=== PATIENT | female | born 1970 | race Hispanic/Latino ===

== ENCOUNTER 2016-11-22 18:42 | Inpatient (IN) | payer OTHER ==
--- NOTE | 2016-11-22 19:53 | Emergency Department Report ---
Chief Complaint: Fever Stated Complaint: VOMITING/FEET AND LEG SWELLING/FEVER Time Seen by Provider: 11/22/16 19:52 - HPI History of Present Illness: Patient here reports coughing, fever and vomiting times one day. She reports bilateral leg and feet swelling 5 days. She says she took Tylenol at 5:30 to 6 PM due to increased temperature. Her temperature is 102.7 upon arrival to ER. Check, temp is 99.7 . Patient heart rate is elevated at 131. She reports generalized pain at 10 out of 10. Feels achy . Reports shortness of breath and some chest tightness. Patient has a history of HIV and she goes to [facility] in [facility]. She said her last T- cell was 569. She history of high blood pressure, high cholesterol. History of endometrial ablation. - ROS Review of Systems: All systems are negative unless stated in HPI above. - Exam Vital Signs: Vital Signs 11/22/16 11/22/16 19:20 19:37 Temperature 102.7 F H 99.7 F H Pulse Rate 138 H 131 H Respiratory 20 18 Rate Blood Pressure 119/74 Blood Pressure 122/76 [Left] O2 Sat by Pulse 91 95 Oximetry Physical Exam: GEN This is an obese female that is nontoxic in appearance. CV: Tachycardic at 131. S1-S2. No audible murmur lungs: Clear in the rhonchi to lung herrmann .Mild Increased work of breathing MSE screening note: Focused history and physical exam performed. Due to findings the following was ordered:see mdm ED Medical Decision Making - Medical Decision Making Medical decision making: Patient seen by provider in triage area. Appropriate protocol activated and patient to main ED to be seen by physician. ED Disposition for MSE Condition: Stable
[2016-11-22] MEDS ORDERED: ATROVENT IH ONE ×2 (19:59→21:52)
[2016-11-22] MEDS ORDERED: DUONEB 0.5 MG-3 MG/3 ML SOLN IH ONE ×2 (19:59→20:22)
[2016-11-22] MEDS ORDERED: PROVENTIL IH ONE ×2 (20:13→21:52)
[2016-11-22 20:58] LABS: Basophils % (Auto) 0.1 % (0.0-1.8); Eosinophils % (Auto) 3.8 % (0.0-4.3); Hematocrit 32.4 % (30.3-42.9); Hemoglobin 10.8 gm/dl (10.1-14.3); Mean Corpuscular HGB Conc 33 % (30-34); Mean Corpuscular Hemoglobin 33 pg (28-32); Mean Corpuscular Volume 98 fl (79-97); Platelet Count 212 K/mm3 (140-440); Red Cell Distribution Width 13.9 % (13.2-15.2); White Blood Count 7.8 K/mm3 (4.5-11.0)
[2016-11-22 21:09] LABS: INR 1.08 (0.87-1.13)
[2016-11-22 21:19] LABS: Alanine Aminotransferase 32 units/L (7-56); Albumin 3.1 g/dL (3.9-5); Albumin/Globulin Ratio 1.4 %; Alkaline Phosphatase 87 units/L (35-129); Anion Gap 16 mmol/L; Bilirubin,Total 0.2 mg/dL (0.1-1.2); Blood Urea Nitrogen 5 mg/dL (7-17); Calcium 8.5 mg/dL (8.4-10.2); Carbon Dioxide 27 mmol/L (22-30); Chloride 98.3 mmol/L (98-107); Glucose 103 mg/dL (65-100); Potassium 3.8 mmol/L (3.6-5.0); Sodium 137 mmol/L (137-145); Total Protein 5.3 g/dL (6.3-8.2)
[2016-11-22] MEDS ORDERED: LASIX IV ONE (21:51)
[2016-11-22] MEDS ORDERED: TORADOL IV ONE (21:51)
[2016-11-22] MEDS ORDERED: TYLENOL PO ONE (21:51)
--- NOTE | 2016-11-22 21:53 | Emergency Department Report ---
ED General Adult HPI - General Chief complaint: Fever Stated complaint: VOMITING/FEET AND LEG SWELLING/FEVER Time Seen by Provider: 11/22/16 19:52 Source: patient, RN notes reviewed Mode of arrival: Ambulatory Limitations: Physical Limitation - History of Present Illness Initial comments: Primary care Dr.: Dr. Mark. HIV specialist: [facility] Past medical history: Adrenal insufficiency, has not been taking hydrocortisone for the past month. Also includes hypertension, high cholesterol, HIV, on highly active anti-retroviral therapy. Reports an undetectable viral load, and a CD4 count of 569. This is a 46-year-old female, previously unknown to me. She presents to the ER with increased work intake, fevers, chills, body aches, unintentional 70 pound weight gain, shortness of breath, orthopnea, cough, nausea and general weakness/ fatigue. The lower extremity swelling has been present for the past month. Fatigue and weight gain have been happening over the past month. No recent antibiotic use. No recent sick contacts. No recent travel. Symptoms are constant, the increased with physical exertion and decreased with rest. The patient reports that prior to the onset of the symptoms, she did not have any issues with exercise tolerance. Her significant other endorses that the patient is drinking a lot of water in a single day. -: Gradual, week(s) Location: back, left, right, lower extremity Severity scale (0 -10): 10 Quality: aching Consistency: constant Improves with: rest Worsens with: movement Associated Symptoms: diaphoresis, fever/chills, loss of appetite, malaise, shortness of breath, weakness - Related Data Home Medications Medication Instructions Recorded Confirmed Last Taken Folic Acid 1 mg PO QDAY 01/26/15 11/23/16 01/19/15 Gabapentin [Neurontin] 600 mg PO TID 01/26/15 11/23/16 01/19/15 Loratadine [Claritin] 10 mg PO DAILY 03/04/15 11/23/16 Unknown Montelukast [Singulair] 10 mg PO QPM 03/04/15 11/23/16 Unknown Ranitidine HCl [Zantac 15mg/ml 300 mg PO BID 01/06/16 11/23/16 Unknown Oral Liq] Abacavir/Dolutegravir/Lamivudi 1 each PO DAILY 05/03/16 11/23/16 Unknown [Triumeq Tablet] Atorvastatin Calcium [Lipitor] 20 mg PO DAILY 05/03/16 11/23/16 Unknown DULoxetine [Cymbalta] 30 mg PO BID 05/03/16 11/23/16 Unknown Abacavir/Dolutegravir/Lamivudi 1 tab PO DAILY 06/09/16 11/23/16 Unknown [Triumeq Tablet] Mirtazapine 15 mg PO DAILY 06/09/16 11/23/16 Unknown Multivitamin No.44/Vit D3/K 1 tab PO DAILY 06/09/16 11/23/16 Unknown [Multivitamins Softgels] Percocet 7.5/325 mg 1 tab PO QID 06/09/16 11/23/16 Unknown Morphine ER 15 mg PO BID 11/23/16 11/23/16 1 Day Ago 15mg Previous Rx's Medication Instructions Recorded Last Taken Type Naproxen [Naprosyn] 500 mg PO BID #20 tablet 11/17/15 Unknown Rx Potassium Chloride [Klor-Con 10] 10 meq PO DAILY #7 tablet.er 11/17/15 Unknown Rx Ibuprofen [Motrin 800 MG tab] 800 mg PO Q8HR PRN #20 tablet 06/10/16 Unknown Rx Promethazine [Phenergan TAB] 25 mg PO Q6HR PRN #10 tab 06/10/16 Unknown Rx Promethazine [Phenergan] 25 mg CA Q6HR PRN #10 supp.rect 06/10/16 Unknown Rx traMADol [Ultram] 50 mg PO Q6HR PRN #14 tablet 06/10/16 Unknown Rx Allergies Allergy/AdvReac Type Severity Reaction Status Date / Time ciprofloxacin [From Cipro] Allergy Swelling Verified 06/09/16 12:10 ciprofloxacin HCl Allergy Swelling Verified 06/09/16 12:10 [From Cipro] citalopram hydrobromide Allergy Swelling Verified 06/09/16 12:10 [From Celexa] "plastic tape" Allergy Rash Uncoded 06/09/16 12:10 ED Review of Systems ROS: Stated complaint: VOMITING/FEET AND LEG SWELLING/FEVER Other details as noted in HPI Constitutional: fever, malaise, weakness Respiratory: shortness of breath Cardiovascular: dyspnea on exertion Gastrointestinal: nausea Genitourinary: as per HPI Musculoskeletal: back pain, arthralgia, myalgia Skin: denies: lesions Neurological: weakness Psychiatric: anxiety ED Past Medical Hx - Past Medical History Hx GERD: Yes Hx Asthma: Yes Hx HIV: Yes (last CD4 1074, february 2016) Additional medical history: Storey's disease. High cholesterol. C-diff - Surgical History Hx Cholecystectomy: Yes Additional Surgical History: Endometrial ablation. x 2. Ovarian cyst. Left knee - Social History Smoking Status: Never Smoker Substance Use Type: Alcohol (rarely) - Medications Home Medications: Home Medications Medication Instructions Recorded Confirmed Last Taken Type Folic Acid 1 mg PO QDAY 01/26/15 11/23/16 01/19/15 History Gabapentin [Neurontin] 600 mg PO TID 01/26/15 11/23/16 01/19/15 History Loratadine [Claritin] 10 mg PO DAILY 03/04/15 11/23/16 Unknown History Montelukast [Singulair] 10 mg PO QPM 03/04/15 11/23/16 Unknown History Naproxen [Naprosyn] 500 mg PO BID #20 tablet 11/17/15 11/23/16 Unknown Rx Potassium Chloride [Klor-Con 10] 10 meq PO DAILY #7 tablet.er 11/17/15 11/23/16 Unknown Rx Ranitidine HCl [Zantac 15mg/ml 300 mg PO BID 01/06/16 11/23/16 Unknown History Oral Liq] Abacavir/Dolutegravir/Lamivudi 1 each PO DAILY 05/03/16 11/23/16 Unknown History [Triumeq Tablet] Atorvastatin Calcium [Lipitor] 20 mg PO DAILY 05/03/16 11/23/16 Unknown History DULoxetine [Cymbalta] 30 mg PO BID 05/03/16 11/23/16 Unknown History Abacavir/Dolutegravir/Lamivudi 1 tab PO DAILY 06/09/16 11/23/16 Unknown History [Triumeq Tablet] Mirtazapine 15 mg PO DAILY 06/09/16 11/23/16 Unknown History Multivitamin No.44/Vit D3/K 1 tab PO DAILY 06/09/16 11/23/16 Unknown History [Multivitamins Softgels] Percocet 7.5/325 mg 1 tab PO QID 08/05/16 01/19/17 Unknown History Ibuprofen [Motrin 800 MG tab] 800 mg PO Q8HR PRN #20 tablet 06/10/16 11/23/16 Unknown Rx Promethazine [Phenergan TAB] 25 mg PO Q6HR PRN #10 tab 06/10/16 11/23/16 Unknown Rx Promethazine [Phenergan] 25 mg CA Q6HR PRN #10 supp.rect 06/10/16 11/23/16 Unknown Rx traMADol [Ultram] 50 mg PO Q6HR PRN #14 tablet 06/10/16 11/23/16 Unknown Rx Morphine ER 15 mg PO BID 11/23/16 11/23/16 1 Day Ago History 15mg ED Physical Exam - General Limitations: Physical Limitation General appearance: alert, in distress, obese - Head Head exam: Present: atraumatic, normocephalic - Eye Eye exam: Present: normal appearance, EOMI. Absent: nystagmus - ENT ENT exam: Present: normal exam, normal orophraynx, mucous membranes moist, normal external ear exam - Neck Neck exam: Present: normal inspection, full ROM. Absent: tenderness, meningismus - Respiratory Respiratory exam: Present: wheezes, rales, rhonchi. Absent: respiratory distress - Cardiovascular Cardiovascular Exam: Present: normal rhythm, tachycardia, normal heart sounds. Absent: systolic murmur, diastolic murmur, rubs, gallop - GI/Abdominal GI/Abdominal exam: Present: soft, normal bowel sounds. Absent: distended, tenderness, guarding, rebound, rigid, pulsatile mass - Extremities Exam Extremities exam: Present: full ROM, normal capillary refill, pedal edema, other (there is 3+ pitting edema in the bilateral lower extremities). Absent: joint swelling, calf tenderness - Back Exam Back exam: Present: normal inspection, full ROM, paraspinal tenderness. Absent : tenderness, CVA tenderness (R), CVA tenderness (L), muscle spasm - Neurological Exam Neurological exam: Present: alert, oriented X3, other (Extraocular movements intact. Tongue midline. No facial droop. Facial sensation intact to light touch in the V1, V2, V3 distribution bilaterally. 5 and 5 strength in 4 extremities.. Sensation is intact to light touch in 4 extremities.). Absent: motor sensory deficit - Psychiatric Psychiatric exam: Present: normal affect, normal mood - Skin Skin exam: Present: warm, dry, intact, normal color. Absent: rash ED Course Vital Signs 11/22/16 11/22/16 11/22/16 19:20 19:37 20:24 Temperature 102.7 F H 99.7 F H Pulse Rate 138 H 131 H Pulse Rate [ 127 H Throughout] Respiratory 20 18 Rate Respiratory 16 Rate [ Throughout] Blood Pressure 119/74 Blood Pressure 122/76 [Left] O2 Sat by Pulse 91 95 Oximetry 11/22/16 11/22/16 11/22/16 20:47 21:31 21:48 Temperature Pulse Rate 129 H Pulse Rate [ 132 H Throughout] Respiratory 22 Rate Respiratory 16 Rate [ Throughout] Blood Pressure 103/57 Blood Pressure 103/57 [Left] O2 Sat by Pulse 92 94 Oximetry 11/22/16 11/22/16 11/22/16 21:49 21:51 21:59 Temperature 102.2 F H Pulse Rate 129 H 118 H Pulse Rate [ Throughout] Respiratory 20 Rate Respiratory Rate [ Throughout] Blood Pressure 111/67 Blood Pressure [Left] O2 Sat by Pulse 100 Oximetry 11/22/16 11/22/16 11/22/16 22:00 22:29 23:00 Temperature Pulse Rate 127 H 126 H Pulse Rate [ 124 H Throughout] Respiratory 24 23 Rate Respiratory 22 Rate [ Throughout] Blood Pressure 114/63 124/73 Blood Pressure [Left] O2 Sat by Pulse 94 98 Oximetry 11/22/16 11/23/16 11/23/16 23:30 00:01 00:15 Temperature Pulse Rate 125 H 124 H Pulse Rate [ 133 H Throughout] Respiratory 10 L 21 Rate Respiratory 21 Rate [ Throughout] Blood Pressure 107/69 102/78 Blood Pressure [Left] O2 Sat by Pulse 100 98 Oximetry 11/23/16 11/23/16 11/23/16 01:00 01:10 02:45 Temperature Pulse Rate Pulse Rate [ Throughout] Respiratory 23 Rate Respiratory Rate [ Throughout] Blood Pressure 97/55 83/57 Blood Pressure [Left] O2 Sat by Pulse 98 100 97 Oximetry 11/23/16 11/23/16 11/23/16 03:00 03:20 03:35 Temperature 99.6 F Pulse Rate 117 H 111 H 109 H Pulse Rate [ Throughout] Respiratory 14 14 14 Rate Respiratory Rate [ Throughout] Blood Pressure 83/49 83/49 87/49 Blood Pressure [Left] O2 Sat by Pulse 97 89 86 Oximetry 11/23/16 11/23/16 11/23/16 04:00 04:30 05:00 Temperature Pulse Rate 102 H 103 H 101 H Pulse Rate [ Throughout] Respiratory 19 17 17 Rate Respiratory Rate [ Throughout] Blood Pressure 91/48 79/48 104/70 Blood Pressure [Left] O2 Sat by Pulse 100 97 100 Oximetry 11/23/16 11/23/16 11/23/16 05:30 06:00 06:03 Temperature Pulse Rate Pulse Rate [ Throughout] Respiratory Rate Respiratory Rate [ Throughout] Blood Pressure 94/57 88/58 88/58 Blood Pressure [Left] O2 Sat by Pulse 99 95 96 Oximetry 11/23/16 11/23/16 11/23/16 06:30 07:00 07:30 Temperature Pulse Rate 100 H 103 H 105 H Pulse Rate [ Throughout] Respiratory 21 14 13 Rate Respiratory Rate [ Throughout] Blood Pressure 94/55 102/63 83/44 Blood Pressure [Left] O2 Sat by Pulse 98 100 94 Oximetry 11/23/16 11/23/16 11/23/16 07:33 07:40 08:00 Temperature 98.7 F Pulse Rate 105 H 103 H Pulse Rate [ Throughout] Respiratory 14 13 Rate Respiratory Rate [ Throughout] Blood Pressure 83/44 84/44 Blood Pressure [Left] O2 Sat by Pulse 95 94 Oximetry 11/23/16 11/23/16 11/23/16 08:30 09:00 09:21 Temperature Pulse Rate 102 H 98 H 99 H Pulse Rate [ Throughout] Respiratory 24 12 12 Rate Respiratory Rate [ Throughout] Blood Pressure 93/63 85/58 83/56 Blood Pressure [Left] O2 Sat by Pulse 96 95 94 Oximetry 11/23/16 11/23/16 11/23/16 09:31 10:00 10:02 Temperature Pulse Rate 98 H 96 H Pulse Rate [ Throughout] Respiratory 18 20 16 Rate Respiratory Rate [ Throughout] Blood Pressure 83/56 Blood Pressure 103/64 [Left] O2 Sat by Pulse 96 96 95 Oximetry - Reevaluation(s) Reevaluation #1: 11/22/16 21:58 Differential diagnosis: Congestive heart failure, cardiomyopathy (ischemic versus infectious versus other), pneumonia, influenza, viremia, bacteremia, right-sided heart failure, pulmonary hypertension Assessment and plan: 46-year-old female with fever, tachycardia, edema, respiratory distress, hypoxia (saturating in the high 80s on room air.) Has a fever. Chest x-ray suggests congestive heart failure with possible pneumonia. The patient has a known history of adrenal insufficiency, and has not been taking her hydrocortisone for the past month. We will start her on BiPAP therapy. We will load her empirically with 100 mg of hydrocortisone IV. She is volume overloaded, and she will be given Lasix. Blood cultures, urine cultures, influenza swab to be sent. She will be given ceftriaxone. Case is discussed with the Hospital physician, Dr. Guo, who accepts the patient to her service. Reevaluation #2: 11/23/16 06:49 CT scan of the chest negative for pulmonary embolus. Patient had some episodes of hypotension. Given hypotension, fever, concern for adrenal suppression, the patient was bolused with 2 L of IV fluid, and hypotension improved. ED Medical Decision Making - Lab Data Result diagrams: 11/22/16 20:43 11/22/16 20:43 Vital Signs 11/22/16 11/22/16 11/22/16 19:20 19:37 20:24 Temperature 102.7 F H 99.7 F H Pulse Rate 138 H 131 H Pulse Rate [ 127 H Throughout] Respiratory 20 18 Rate Respiratory 16 Rate [ Throughout] Blood Pressure 119/74 Blood Pressure 122/76 [Left] O2 Sat by Pulse 91 95 Oximetry 11/22/16 11/22/16 11/22/16 20:47 21:48 21:49 Temperature Pulse Rate 129 H 129 H Pulse Rate [ 132 H Throughout] Respiratory 22 Rate Respiratory 16 Rate [ Throughout] Blood Pressure Blood Pressure 103/57 [Left] O2 Sat by Pulse 94 Oximetry 11/22/16 21:59 Temperature 102.2 F H Pulse Rate Pulse Rate [ Throughout] Respiratory Rate Respiratory Rate [ Throughout] Blood Pressure Blood Pressure [Left] O2 Sat by Pulse Oximetry Lab Results 11/22/16 11/22/16 11/22/16 Range/Units 20:43 20:43 20:43 WBC 7.8 (4.5-11.0) K/mm3 RBC 3.30 L (3.65-5.03) M/mm3 Hgb 10.8 (10.1-14.3) gm/dl Hct 32.4 (30.3-42.9) % MCV 98 H (79-97) fl MCH 33 H (28-32) pg MCHC 33 (30-34) % RDW 13.9 (13.2-15.2) % Plt Count 212 (140-440) K/mm3 Lymph % (Auto) 21.8 (13.4-35.0) % Graham % (Auto) 13.0 H (0.0-7.3) % Eos % (Auto) 3.8 (0.0-4.3) % Baso % (Auto) 0.1 (0.0-1.8) % Lymph # 1.7 (1.2-5.4) K/mm3 Graham # 1.0 H (0.0-0.8) K/mm3 Eos # 0.3 (0.0-0.4) K/mm3 Baso # 0.0 (0.0-0.1) K/mm3 Seg Neutrophils % 61.3 (40.0-70.0) % Seg Neutrophils # 4.8 (1.8-7.7) K/mm3 PT 13.9 (12.2-14.9) Sec. INR 1.08 (0.87-1.13) Sodium 137 (137-145) mmol/L Potassium 3.8 (3.6-5.0) mmol/L Chloride 98.3 (98-107) mmol/L Carbon Dioxide 27 (22-30) mmol/L Anion Gap 16 mmol/L BUN 5 L (7-17) mg/dL Creatinine 1.0 (0.7-1.2) mg/dL Estimated GFR 60 ml/min BUN/Creatinine Ratio 5.00 % Glucose 103 H (65-100) mg/dL Lactic Acid (0.7-2.0) mmol/L Calcium 8.5 (8.4-10.2) mg/dL Total Bilirubin 0.2 (0.1-1.2) mg/dL AST 41 H (5-40) units/L ALT 32 (7-56) units/L Alkaline Phosphatase 87 (35-129) units/L Troponin T < 0.010 (0.00-0.029) ng/mL NT-Pro-B Natriuret Pep (0-450) pg/mL Total Protein 5.3 L (6.3-8.2) g/dL Albumin 3.1 L (3.9-5) g/dL Albumin/Globulin Ratio 1.4 % 11/22/16 11/22/16 Range/Units 20:43 20:43 WBC (4.5-11.0) K/mm3 RBC (3.65-5.03) M/mm3 Hgb (10.1-14.3) gm/dl Hct (30.3-42.9) % MCV (79-97) fl MCH (28-32) pg MCHC (30-34) % RDW (13.2-15.2) % Plt Count (140-440) K/mm3 Lymph % (Auto) (13.4-35.0) % Graham % (Auto) (0.0-7.3) % Eos % (Auto) (0.0-4.3) % Baso % (Auto) (0.0-1.8) % Lymph # (1.2-5.4) K/mm3 Graham # (0.0-0.8) K/mm3 Eos # (0.0-0.4) K/mm3 Baso # (0.0-0.1) K/mm3 Seg Neutrophils % (40.0-70.0) % Seg Neutrophils # (1.8-7.7) K/mm3 PT (12.2-14.9) Sec. INR (0.87-1.13) Sodium (137-145) mmol/L Potassium (3.6-5.0) mmol/L Chloride (98-107) mmol/L Carbon Dioxide (22-30) mmol/L Anion Gap mmol/L BUN (7-17) mg/dL Creatinine (0.7-1.2) mg/dL Estimated GFR ml/min BUN/Creatinine Ratio % Glucose (65-100) mg/dL Lactic Acid 1.7 (0.7-2.0) mmol/L Calcium (8.4-10.2) mg/dL Total Bilirubin (0.1-1.2) mg/dL AST (5-40) units/L ALT (7-56) units/L Alkaline Phosphatase (35-129) units/L Troponin T (0.00-0.029) ng/mL NT-Pro-B Natriuret Pep 351.7 (0-450) pg/mL Total Protein (6.3-8.2) g/dL Albumin (3.9-5) g/dL Albumin/Globulin Ratio % - EKG Data 11/22/16 22:00 sinus tachycardia, low voltage, QTC prolonged at 581 ms, abnormal EKG, not consistent with STEMI, appears unchanged when compared to prior EKG from June 2016. Critical Care Time: Yes Critical care time in (mins) excluding proc time.: 35 Critical care attestation.: If time is entered above; I have spent that time in minutes in the direct care of this critically ill patient, excluding procedure time. Critical Care Time: Critical care time includes multiple bedside evaluations, interpretation of laboratory studies, radiology studies, time spent managing a patient with respiratory failure requiring initiation of BiPAP therapy, antibiotics, diuretics, and discussing with consulting services, including hospital medicine. This excludes procedure time. ED Disposition Clinical Impression: Respiratory failure, Volume overload, Acute febrile illness Disposition: OP ADMITTED IP TO THIS HOSP Is pt being admited?: Yes Condition: Good
--- NOTE | 2016-11-22 21:59 | XRay Report ---
FINAL REPORT EXAM: XR CHEST ROUTINE 2V HISTORY: Fever/Sepsis TECHNIQUE: PA and lateral views of the chest PRIORS: CT a/P 06/09/2016 FINDINGS: Lines, tubes, and devices: N/A Lungs and pleura: Trachea is normal in position. Lungs are clear of infiltrate, pleural effusion, vascular congestion, or pneumothorax. Cardiomediastinal silhouette: Cardiac silhouette is enlarged. However, on the right cardiac border, there is lucency within the silhouette suggesting a prominent epicardial fat pad the likely etiology. This is confirmed on prior CT. Other: Bony structures are intact. IMPRESSION: Enlarged cardiac silhouette due to a large epicardial fat pad on the right. No acute cardiopulmonary process seen.
[2016-11-22] MEDS ORDERED: ROCEPHIN/NS 2 GM/100 ML 100 ML IV ONE (22:00)
[2016-11-22 22:14] LABS: Bacteria,Urine 1+ /HPF (Negative); Bilirubin,Urine NEG (Negative); Blood,Urine NEG (Negative); Ketones,Urine NEG (Negative); Leukocyte Esterase,Urine NEG (Negative); Mucus,Urine FEW /HPF; Nitrite,Urine NEG (Negative); Protein,Urine <15 mg/dL mg/dL (Negative); RBC,Urine < 1.0 /HPF (0.0-6.0); Urobilinogen,Urine < 2.0 mg/dL (<2.0); WBC,Urine < 1.0 /HPF (0.0-6.0)
[2016-11-22 22:28] LABS: ISTAT Base Excess 1; ISTAT HCO3 25.8; ISTAT PCO2 44.3 (35-45); ISTAT PH 7.373 (7.35-7.45); ISTAT PO2 66 (80-105); ISTAT SO2 92; ISTAT TCO2 27
[2016-11-22] MEDS ORDERED: NACL ONE (23:01)
--- NOTE | 2016-11-22 23:13 | Admit Criteria Form ---
Admission Criteria Documentation: RESPIRATORY FAILURE GRG Clinical Indications for Admission to Inpatient Care (Place 'X' for any and all applicable criteria): Hospital admission is needed for appropriate care of the patient because of acute respiratory failure or insufficiency as indicated by ANY ONE of the following(1)(2)(3)(4)(5)(6)(7)(8): [X ]I. Mechanical ventilation needed (acute invasive or noninvasive) [ ]II. Severe ventilation deficit as indicated by ANY ONE of the following (9) [ ]a) Respiratory acidosis (pH less than 7.32 and partial pressure of carbon dioxide greater than 40 mm Hg (5.3 kPa)) [ ]b) Partial pressure of carbon dioxide greater than 44 mm Hg (5.9 kPa ) (new) [ ]c) Airflow measurements less than 25% of predicted (eg, peak expiratory flow rate less than 100 L/minute) [ ]d) Forced vital capacity less than 15 mL/kg of ideal body weight, or 50% decrease in vital capacity from baseline [ ]III. Noncardiac pulmonary edema not resolving with rapid emergency treatment (8) [ ]IV. Severe respiratory distress as indicated by ANY ONE of the following: [ ]a) Severe tachypnea (respiratory rate greater than 30, greater than 45 for 6-month-old, greater than 60 for ) [ ]b) Severe hypoxemia (partial pressure of oxygen less than 50 mm Hg ( 6.7 kPa) on greater than 50% oxygen or partial pressure of oxygen to FIO2 ratio less than 200) [ ]c) Mental status deterioration from respiratory disease [ ]V. Airway obstruction or inadequate protection [A](10)(11) The original [employer] content created by [employer] has been revised. The portions of the content which have been revised are identified through the use of italic text or in bold, and [employer] has neither reviewed nor approved the modified material. All other unmodified content is copyright [employer]. Please see references footnoted in the original [employer] edition 2016 Admission Criteria Met: Yes
--- NOTE | 2016-11-23 03:06 | Cat Scan Report ---
FINAL REPORT PROCEDURE: CT ANGIO CHEST TECHNIQUE: Computerized axial tomographic angiography of the chest and pulmonary arteries was performed after the IV injection of iodinated nonionic contrast. The image data was postprocessed using maximum intensity projection (MIP) and 2-dimensional multiplanar reformatted (MPR) techniques. The examination is specifically tailored to the evaluation of the pulmonary arteries per clinical request. HISTORY: Short of breath 786.09, chest pain 786.50, chf vs PE vs PNA SOB COMPARISON: No prior studies are available for comparison. FINDINGS: Heart and pericardium: There is prominent pericardial fat. There is herniation of abdominal fat into the anterior pericardial region.. Thoracic aorta: There is no thoracic aortic aneurysm or dissection.. Pulmonary vasculature: There is no pulmonary embolism.. Lymph nodes: There are borderline enlarged mediastinal lymph nodes which are nonspecific.. Lungs: There is suboptimal inspiration with bilateral discoid atelectasis. There are no infiltrates. There is significant narrowing of the trachea and bronchi consistent tracheomalacia. There is no intrinsic filling defect.. Pleural space: There are no effusions or pneumothoraces.. Musculoskeletal structures: No significant abnormality. Upper abdominal structures: There has been a cholecystectomy. The bile ducts are slightly dilated.. IMPRESSION: Heart size is normal. There is prominent pericardial fat. There is herniation of abdominal fat into the anterior pericardial region.. There is no thoracic aortic aneurysm or dissection.. There is no pulmonary embolism.. There is suboptimal inspiration with bilateral discoid atelectasis. There are no infiltrates. There is significant narrowing of the trachea and bronchi consistent tracheomalacia. There is no intrinsic filling defect.. There are no effusions or pneumothoraces.. There has been a cholecystectomy. The bile ducts are slightly dilated.. .
[2016-11-23] MEDS ORDERED: NACL 0.9% 1000 ML 2,000 ML ONE (03:38)
[2016-11-23] MEDS ORDERED: NACL 0.9% 1000 ML 2,000 ML IV ONE (03:50)
--- NOTE | 2016-11-23 06:13 | History and Physical Report ---
History of Present Illness Date of examination: 11/23/16 Date of admission: 11/23/16 03:41 History of present illness: 46 year old woman with history of HIV, adrenal insufficiency, GERD, asthma, hypertension, hyperlipidemia comes to the emergency room with complaints of shortness of breath, cough productive of brown phlegm, fever and generalized weakness. Also complaining of nausea vomiting, unable to do ADLs. His symptoms started yesterday. Patient stated that she has had increasing lower extremity edema over the last 2 weeks. She is on chronic steroids for adrenal numbness insulin over the last month and since then her edema has gotten worse. Patient was placed on BiPAP in the emergency room Patient denies chest pain, palpitation, , abdominal pain, hematochezia, dysuria , frequency, focal weakness, dysarthria, fever chills, polydipsia polyuria, hot or cold intolerance, easy bruisability, or rash or bleeding from mucosal membrane, rhinorrhea, epistaxis, earache, tinnitus, blurry vision, eye discharge , anxiety, depression. Other review of systems negative PAST SURGICAL HISTORY: Left knee surgery, 2, removal of ovarian cyst , endometrial ablation SOCIAL HISTORY: Denies alcohol, tobacco, drugs FAMILY HISTORY: Hypertension Medications and Allergies Allergies Allergy/AdvReac Type Severity Reaction Status Date / Time ciprofloxacin [From Cipro] Allergy Swelling Verified 06/09/16 12:10 ciprofloxacin HCl Allergy Swelling Verified 06/09/16 12:10 [From Cipro] citalopram hydrobromide Allergy Swelling Verified 06/09/16 12:10 [From Celexa] "plastic tape" Allergy Rash Uncoded 06/09/16 12:10 Home Medications Medication Instructions Recorded Confirmed Last Taken Type Folic Acid 1 mg PO QDAY 01/26/15 11/23/16 01/19/15 History Gabapentin [Neurontin] 600 mg PO TID 01/26/15 11/23/16 01/19/15 History Loratadine [Claritin] 10 mg PO DAILY 03/04/15 11/23/16 Unknown History Montelukast [Singulair] 10 mg PO QPM 03/04/15 11/23/16 Unknown History Naproxen [Naprosyn] 500 mg PO BID #20 tablet 11/17/15 11/23/16 Unknown Rx Potassium Chloride [Klor-Con 10] 10 meq PO DAILY #7 tablet.er 11/17/15 11/23/16 Unknown Rx Ranitidine HCl [Zantac 15mg/ml 300 mg PO BID 01/06/16 11/23/16 Unknown History Oral Liq] Abacavir/Dolutegravir/Lamivudi 1 each PO DAILY 05/03/16 11/23/16 Unknown History [Triumeq Tablet] Atorvastatin Calcium [Lipitor] 20 mg PO DAILY 05/03/16 11/23/16 Unknown History DULoxetine [Cymbalta] 30 mg PO BID 05/03/16 11/23/16 Unknown History Abacavir/Dolutegravir/Lamivudi 1 tab PO DAILY 06/09/16 11/23/16 Unknown History [Triumeq Tablet] Mirtazapine 15 mg PO DAILY 06/09/16 11/23/16 Unknown History Multivitamin No.44/Vit D3/K 1 tab PO DAILY 06/09/16 11/23/16 Unknown History [Multivitamins Softgels] Percocet 7.5/325 mg 1 tab PO QID 06/09/16 11/23/16 Unknown History Ibuprofen [Motrin 800 MG tab] 800 mg PO Q8HR PRN #20 tablet 06/10/16 11/23/16 Unknown Rx Promethazine [Phenergan TAB] 25 mg PO Q6HR PRN #10 tab 06/10/16 11/23/16 Unknown Rx Promethazine [Phenergan] 25 mg VA Q6HR PRN #10 supp.rect 06/10/16 11/23/16 Unknown Rx traMADol [Ultram] 50 mg PO Q6HR PRN #14 tablet 06/10/16 11/23/16 Unknown Rx Morphine ER 15 mg PO BID 11/23/16 11/23/16 1 Day Ago History 15mg Exam - Physical Exam Narrative exam: Gen. appearance: Patient lying in bed, no apparent distress HEENT: Normocephalic, atraumatic, pupils equally round and reactive to light, extraocular movement intact, and no sclericterus,. No JVD or thyromegaly or nodule,neck supple, no carotid bruit ,mucous membranes moist, no exudate or erythema Heart: S1, S2, regular rate and rhythm Lungs: Diffuse rhonchi, wheezing bilaterally, breathing comfortable Abdomen: Positive bowel sounds, nontender, nondistended, no organomegaly Extremity: No edema, cyanosis, clubbing Skin: No rash, nodules, warm, dry Neuro: Oriented 3, cranial nerves II-12 intact, speech is fluent, motor and sensory intact - Constitutional Vitals: Temp Pulse Resp BP Pulse Ox 99.6 F 101 H 17 88/58 95 11/23/16 03:35 11/23/16 05:00 11/23/16 05:00 11/23/16 06:00 11/23/16 06:00 Results - Labs CBC & Chem 7: 11/24/16 05:55 11/26/16 18:04 - Imaging and Cardiology Chest x-ray: image reviewed CT scan - chest: report reviewed Assessment and Plan Acute respiratory failure Asthma exacerbation with bronchitis Adrenal insufficiency exacerbation HIV GERD Admit to medicine Continue BiPAP, start high-dose IV hydrocortisone, nebulized treatment Diurese IV Lasix, check cardiac enzymes Continue appropriate outpatient medications, start DVT prophylaxis
[2016-11-23] MEDS: NEURONTIN PO SCH ×3 (08:30→21:44)
[2016-11-23] MEDS ORDERED: PEPCID ONE (08:45)
[2016-11-23] MEDS ORDERED: CYMBALTA ONE (08:46)
[2016-11-23] MEDS ORDERED: REMERON ONE (08:46)
[2016-11-23] MEDS ORDERED: NEURONTIN ONE (08:47)
[2016-11-23] MEDS ORDERED: TYLENOL PO PRN (09:00)
[2016-11-23] MEDS ORDERED: ZOFRAN IV PRN (09:00)
[2016-11-23] MEDS ORDERED: MILK OF MAGNESIA PO PRN (09:00)
[2016-11-23] MEDS ORDERED: NACL 0.9% 1000 ML 1,000 ML ONE (09:39)
[2016-11-23] MEDS ORDERED: PROVENTIL IH PRN (09:39)
[2016-11-23] MEDS ORDERED: NACL 0.9% 1000 ML IV ONE (09:40)
[2016-11-23] MEDS: LASIX IV SCH (09:49)
[2016-11-23] MEDS: CYMBALTA PO SCH ×2 (09:50→21:44)
[2016-11-23] MEDS: REMERON PO SCH (09:50)
[2016-11-23] MEDS: LOVENOX SUB-Q SCH (09:50)
[2016-11-23] MEDS: PEPCID PO SCH ×2 (09:50→21:44)
[2016-11-23] MEDS ORDERED: DULCOLAX PR PRN (10:00)
[2016-11-23 10:06] LABS: Creatine Kinase MB 1.9 ng/mL (0.0-4.0)
[2016-11-23 10:10] LABS: Creatine Kinase 215 units/L (30-135)
[2016-11-23] MEDS: FOLVITE PO SCH (12:06)
[2016-11-23] MEDS: DUONEB 0.5 MG-3 MG/3 ML SOLN IH SCH ×3 (13:34→21:10)
[2016-11-23 15:45] LABS: Creatine Kinase MB 2.1 ng/mL (0.0-4.0)
[2016-11-23 15:46] LABS: Creatine Kinase 268 units/L (30-135)
--- NOTE | 2016-11-23 17:47 | Event Note ---
Date: 11/23/16 SOB better More comfortableAcute respiratory failure Asthma exacerbation with bronchitis Adrenal insufficiency exacerbation HIV GERD Continue BiPAP, start high-dose IV hydrocortisone, nebulized treatment Diurese IV Lasix, check cardiac enzymes Continue appropriate outpatient medications, start DVT prophylaxis
[2016-11-24] MEDS ORDERED: ULTRAM PO PRN (00:47)
[2016-11-24] MEDS ORDERED: PHENERGAN PO PRN (00:49)
[2016-11-24] MEDS: DUONEB 0.5 MG-3 MG/3 ML SOLN IH SCH ×4 (01:23→21:06)
[2016-11-24] MEDS: PERCOCET 5/325 PO PRN (05:44)
[2016-11-24 06:35] LABS: Basophils % (Auto) 0.1 % (0.0-1.8); Hematocrit 29.9 % (30.3-42.9); Hemoglobin 9.9 gm/dl (10.1-14.3); Mean Corpuscular HGB Conc 33 % (30-34); Mean Corpuscular Hemoglobin 33 pg (28-32); Mean Corpuscular Volume 99 fl (79-97); Platelet Count 175 K/mm3 (140-440); Red Blood Count 3.03 M/mm3 (3.65-5.03); Red Cell Distribution Width 14.2 % (13.2-15.2); White Blood Count 4.1 K/mm3 (4.5-11.0)
[2016-11-24 06:46] LABS: Alanine Aminotransferase 24 units/L (7-56); Albumin 2.5 g/dL (3.9-5); Albumin/Globulin Ratio 0.9 %; Alkaline Phosphatase 68 units/L (35-129); BUN/Creatinine Ratio 11.42; Bilirubin,Total < 0.2 mg/dL (0.1-1.2); Blood Urea Nitrogen 8 mg/dL (7-17); Calcium 7.9 mg/dL (8.4-10.2); Carbon Dioxide 26 mmol/L (22-30); Chloride 104.1 mmol/L (98-107); Glucose 147 mg/dL (65-100); Potassium 3.8 mmol/L (3.6-5.0); Sodium 143 mmol/L (137-145); Total Protein 5.3 g/dL (6.3-8.2)
[2016-11-24 06:47] LABS: Anion Gap 17 mmol/L
[2016-11-24] MEDS ORDERED: PROTONIX PO ONE (09:38)
--- NOTE | 2016-11-24 09:46 | Progress Note ---
Assessment and Plan Assessment and plan: 46 year old woman with history of HIV, adrenal insufficiency, GERD, asthma, htn , hld, pw SOB and fever, productive cough, -here for asthma exacerbation, adrenal insufficiency and SIRS 1. Asthma exacerbation Add azithromycin, taper steroids, continue nebulizer treatment, continue to wean oxygen 2. Acute hypoxic respiratory failure Patient required rescue BiPAP, now on supplemental oxygen and doing well 3. Fluid overload has probable CHF?, increase IV lasix to TID, obtain echocardiogram 4. Adrenal insufficiency Continue steroids as above, tapering dose 5. Sirs Patient was febrile initially, fever has improved now, infectious workup is so far negative, urine and chest imaging is negative. Will send influenza swab today 6. HIV Continue retrovirals History Interval history: Shortness of breath is improving as his wheezing. Continues to have dyspnea on exertion, c/o pitting edema and 50 pound weight gain over 2 months Hospitalist Physical - Physical exam Narrative exam: General: Patient appears well in no distress HEENT: MMM, EOMI cardiac: S1-S2 heard lungs: Decreased air entry, expiratory wheezing abdomen: soft, nontender, nondistended bowel sounds positive extremities: 3 plus bipedal edema, no clubbing or cyanosis Skin: no rash or lesion Neuro: no focal deficit Psych: appropriate behavior and mood, cognition intact - Constitutional Vitals: Temp Pulse Resp BP Pulse Ox 98.4 F 104 H 16 118/75 96 11/24/16 05:23 11/24/16 08:33 11/24/16 08:33 11/24/16 05:23 11/24/16 05:23 Results - Labs CBC & Chem 7: 11/24/16 05:55 11/24/16 05:55 Labs: Laboratory Last Values WBC 4.1 K/mm3 (4.5-11.0) L 11/24/16 05:55 RBC 3.03 M/mm3 (3.65-5.03) L 11/24/16 05:55 Hgb 9.9 gm/dl (10.1-14.3) L 11/24/16 05:55 Hct 29.9 % (30.3-42.9) L 11/24/16 05:55 MCV 99 fl (79-97) H 11/24/16 05:55 MCH 33 pg (28-32) H 11/24/16 05:55 MCHC 33 % (30-34) 11/24/16 05:55 RDW 14.2 % (13.2-15.2) 11/24/16 05:55 Plt Count 175 K/mm3 (140-440) 11/24/16 05:55 Lymph % (Auto) 19.5 % (13.4-35.0) 11/24/16 05:55 [place] % (Auto) 11.5 % (0.0-7.3) H 11/24/16 05:55 Eos % (Auto) 0.0 % (0.0-4.3) 11/24/16 05:55 Baso % (Auto) 0.1 % (0.0-1.8) 11/24/16 05:55 Lymph # 0.8 K/mm3 (1.2-5.4) L 11/24/16 05:55 [place] # 0.5 K/mm3 (0.0-0.8) 11/24/16 05:55 Eos # 0.0 K/mm3 (0.0-0.4) 11/24/16 05:55 Baso # 0.0 K/mm3 (0.0-0.1) 11/24/16 05:55 Seg Neutrophils % 68.9 % (40.0-70.0) 11/24/16 05:55 Seg Neutrophils # 2.9 K/mm3 (1.8-7.7) 11/24/16 05:55 PT 13.9 Sec. (12.2-14.9) 11/22/16 20:43 INR 1.08 (0.87-1.13) 11/22/16 20:43 POC ABG pH 7.373 (7.35-7.45) 11/22/16 22:18 POC ABG pCO2 44.3 (35-45) 11/22/16 22:18 POC ABG pO2 66 (80-105) L 11/22/16 22:18 POC ABG HCO3 25.8 11/22/16 22:18 POC ABG Total CO2 27 11/22/16 22:18 POC ABG O2 Sat 92 11/22/16 22:18 POC ABG Base Excess 1 11/22/16 22:18 Sodium 143 mmol/L (137-145) 11/24/16 05:55 Potassium 3.8 mmol/L (3.6-5.0) 11/24/16 05:55 Chloride 104.1 mmol/L (98-107) 11/24/16 05:55 Carbon Dioxide 26 mmol/L (22-30) 11/24/16 05:55 Anion Gap 17 mmol/L 11/24/16 05:55 BUN 8 mg/dL (7-17) 11/24/16 05:55 Creatinine 0.7 mg/dL (0.7-1.2) 11/24/16 05:55 Estimated GFR > 60 ml/min 11/24/16 05:55 BUN/Creatinine Ratio 11.42 % 11/24/16 05:55 Glucose 147 mg/dL (65-100) H 11/24/16 05:55 Lactic Acid 2.0 mmol/L (0.7-2.0) 11/22/16 23:22 Calcium 7.9 mg/dL (8.4-10.2) L 11/24/16 05:55 Total Bilirubin < 0.2 mg/dL (0.1-1.2) 11/24/16 05:55 AST 30 units/L (5-40) 11/24/16 05:55 ALT 24 units/L (7-56) 11/24/16 05:55 Alkaline Phosphatase 68 units/L (35-129) 11/24/16 05:55 Total Creatine Kinase 268 units/L (30-135) H 11/23/16 14:55 CK-MB (CK-2) 2.1 ng/mL (0.0-4.0) 11/23/16 14:55 CK-MB (CK-2) Rel Index 0.7 (0-4) 11/23/16 14:55 Troponin T < 0.010 ng/mL (0.00-0.029) 11/23/16 14:55 NT-Pro-B Natriuret Pep 351.7 pg/mL (0-450) 11/22/16 20:43 Total Protein 5.3 g/dL (6.3-8.2) L 11/24/16 05:55 Albumin 2.5 g/dL (3.9-5) L 11/24/16 05:55 Albumin/Globulin Ratio 0.9 % 11/24/16 05:55 Urine Color Yellow (Yellow) 11/22/16 21:59 Urine Turbidity Clear (Clear) 11/22/16 21:59 Urine pH 5.0 (5.0-7.0) 11/22/16 21:59 Ur Specific [place] 1.009 (1.003-1.030) 11/22/16 21:59 Urine Protein <15 mg/dl mg/dL (Negative) 11/22/16 21:59 Urine Glucose (UA) Neg mg/dL (Negative) 11/22/16 21:59 Urine Ketones Neg mg/dL (Negative) 11/22/16 21:59 Urine Blood Neg (Negative) 11/22/16 21:59 Urine Nitrite Neg (Negative) 11/22/16 21:59 Urine Bilirubin Neg (Negative) 11/22/16 21:59 Urine Urobilinogen < 2.0 mg/dL (<2.0) 11/22/16 21:59 Ur Leukocyte Esterase Neg (Negative) 11/22/16 21:59 Urine WBC (Auto) < 1.0 /HPF (0.0-6.0) 11/22/16 21:59 Urine RBC (Auto) < 1.0 /HPF (0.0-6.0) 11/22/16 21:59 U Epithel Cells (Auto) 1.0 /HPF (0-13.0) 11/22/16 21:59 Urine Bacteria (Auto) 1+ /HPF (Negative) 11/22/16 21:59 Urine Mucus Few /HPF 11/22/16 21:59 - Imaging and Cardiology CT scan - chest: image reviewed (there is no pulmonary embolus, no infiltrates, tracheomalacia is seen)
[2016-11-24] MEDS: LOVENOX SUB-Q SCH (10:02)
[2016-11-24] MEDS: CYMBALTA PO SCH ×2 (10:02→22:25)
[2016-11-24] MEDS: NEURONTIN PO SCH ×3 (10:02→22:25)
[2016-11-24] MEDS: FOLVITE PO SCH (10:02)
[2016-11-24] MEDS: REMERON PO SCH (10:02)
[2016-11-24] MEDS: LASIX IV SCH ×3 (10:03→22:33)
[2016-11-24] MEDS: NAPROSYN PO SCH ×2 (10:12→22:24)
[2016-11-24] MEDS: MS CONTIN ER PO SCH ×2 (10:12→22:16)
[2016-11-24] MEDS: PEPCID PO SCH ×2 (10:23→22:17)
[2016-11-24] MEDS: ZITHROMAX PO SCH (12:51)
[2016-11-25] MEDS: DUONEB 0.5 MG-3 MG/3 ML SOLN IH SCH ×4 (02:14→19:22)
[2016-11-25] MEDS: PERCOCET 5/325 PO PRN ×2 (03:34→18:54)
[2016-11-25] MEDS: LASIX IV SCH ×3 (06:25→18:25)
[2016-11-25] MEDS: NEURONTIN PO SCH ×3 (09:06→20:44)
--- NOTE | 2016-11-25 09:39 | Progress Note ---
Assessment and Plan Assessment and plan: 46-year-old obese female with a history of HIV adrenal insufficiency and asthma exacerbation currently hemodynamically stable and improving with steroid- dependent and steroidal taper. Disposition Plan: discharge when acute asthma has been effectively treated. Total Time Spent with Patient (Minutes): 23 - Patient Problems (1) Acute febrile illness Current Visit: Yes Status: Acute Plan to address problem: Acute febrile illness most likely secondary to influenza. Has been greater than 2-3 days Tamiflu will be unaffected continue to treat symptoms. (2) Respiratory failure Current Visit: Yes Status: Acute Qualifiers: Chronicity: acute Respiratory failure complication: hypoxia Qualified Code(s): J96.01 - Acute respiratory failure with hypoxia Plan to address problem: Acute hypoxic respiratory failure secondary to asthma. Influenza virus may have been a trigger. Patient still short of breath and still wheezing but has improved. We'll continue to taper still steroids. Continue nebulizes. (3) Volume overload Current Visit: Yes Status: Acute Plan to address problem: Patient also has evidence of volume overload on exam. Patient has +3 pitting edema. And few crackles on bilateral lower lung [place]. Echocardiogram pending to rule out congestive heart failure in addition to this asthma component. Continue oxygen. If patient is in fact in failure will add SUPRIYA inhibitor, diarrhetic. We'll need to assess risks versus benefits with the addition of a beta kristen in this patient with severe asthma. (4) Abdominal pain Current Visit: No Status: Acute Qualifiers: Abdominal location: generalized Qualified Code(s): R10.84 - Generalized abdominal pain Plan to address problem: Resolved at this particular time. (5) Asthma exacerbation Current Visit: Yes Status: Acute Plan to address problem: Patient would appears to be acute asthma exacerbation. Continue nebulizes empiric antibodies. Albuterol Atrovent and taper sterile. (6) SIRS (systemic inflammatory response syndrome) Current Visit: Yes Status: Acute Plan to address problem: At present most likely secondary to influenza a. Treat symptom management. Improving. White count downtrending fever curve improving strength improving. (7) Influenza A Current Visit: Yes Status: Acute Plan to address problem: See positive blood. Continue supportive care. (8) Adrenal insufficiency Current Visit: Yes Status: Acute Plan to address problem: Significant improvement with sterile at school continue taper as planned. History Interval history: Patient today states she feels tight around her chest. Patient states she's never felt as bad as she does with her breathing. Patient states she usually just does poor air when necessary but now requires much more nebulizer treatment. Patient states she is better than when she came in. As significant patient was diagnosed with positive influenza a today. Hospitalist Physical - Constitutional Vitals: Temp Pulse Resp BP Pulse Ox 98.0 F 99 H 20 116/68 95 11/25/16 08:13 11/25/16 08:13 11/25/16 08:13 11/25/16 08:13 11/25/16 08:13 General appearance: Present: no acute distress - EENT Eyes: Present: PERRL, EOM intact ENT: hearing intact, clear oral mucosa, dentition normal, no oropharyngeal erythema, no poor dentition, no thrush - Neck Neck: Present: supple, normal ROM, other (obese). Absent: enlarged thyroid, masses or JVD - Respiratory Respiratory: bilateral: diminished, rales, wheezing - Cardiovascular Rhythm: regular Heart Sounds: Present: S1 & S2 - Extremities Extremity abnormal: edema, pulses diminished Peripheral Pulses: within normal limits - Abdominal General gastrointestinal: soft, non-distended, normal bowel sounds, other (obese ) - Integumentary Integumentary: Present: clear, warm, dry - Psychiatric Psychiatric: appropriate mood/affect - Neurologic Neurologic: CNII-XII intact, no focal deficits, moves all extremities, no gait normal - Allied Health Allied health notes reviewed: PT, case management Results - Labs CBC & Chem 7: 11/24/16 05:55 11/24/16 05:55 Labs: Laboratory Last Values WBC 4.1 K/mm3 (4.5-11.0) L 11/24/16 05:55 RBC 3.03 M/mm3 (3.65-5.03) L 11/24/16 05:55 Hgb 9.9 gm/dl (10.1-14.3) L 11/24/16 05:55 Hct 29.9 % (30.3-42.9) L 11/24/16 05:55 MCV 99 fl (79-97) H 11/24/16 05:55 MCH 33 pg (28-32) H 11/24/16 05:55 MCHC 33 % (30-34) 11/24/16 05:55 RDW 14.2 % (13.2-15.2) 11/24/16 05:55 Plt Count 175 K/mm3 (140-440) 11/24/16 05:55 Lymph % (Auto) 19.5 % (13.4-35.0) 11/24/16 05:55 [place] % (Auto) 11.5 % (0.0-7.3) H 11/24/16 05:55 Eos % (Auto) 0.0 % (0.0-4.3) 11/24/16 05:55 Baso % (Auto) 0.1 % (0.0-1.8) 11/24/16 05:55 Lymph # 0.8 K/mm3 (1.2-5.4) L 11/24/16 05:55 [place] # 0.5 K/mm3 (0.0-0.8) 11/24/16 05:55 Eos # 0.0 K/mm3 (0.0-0.4) 11/24/16 05:55 Baso # 0.0 K/mm3 (0.0-0.1) 11/24/16 05:55 Seg Neutrophils % 68.9 % (40.0-70.0) 11/24/16 05:55 Seg Neutrophils # 2.9 K/mm3 (1.8-7.7) 11/24/16 05:55 PT 13.9 Sec. (12.2-14.9) 11/22/16 20:43 INR 1.08 (0.87-1.13) 11/22/16 20:43 POC ABG pH 7.373 (7.35-7.45) 11/22/16 22:18 POC ABG pCO2 44.3 (35-45) 11/22/16 22:18 POC ABG pO2 66 (80-105) L 11/22/16 22:18 POC ABG HCO3 25.8 11/22/16 22:18 POC ABG Total CO2 27 11/22/16 22:18 POC ABG O2 Sat 92 11/22/16 22:18 POC ABG Base Excess 1 11/22/16 22:18 Sodium 143 mmol/L (137-145) 11/24/16 05:55 Potassium 3.8 mmol/L (3.6-5.0) 11/24/16 05:55 Chloride 104.1 mmol/L (98-107) 11/24/16 05:55 Carbon Dioxide 26 mmol/L (22-30) 11/24/16 05:55 Anion Gap 17 mmol/L 11/24/16 05:55 BUN 8 mg/dL (7-17) 11/24/16 05:55 Creatinine 0.7 mg/dL (0.7-1.2) 11/24/16 05:55 Estimated GFR > 60 ml/min 11/24/16 05:55 BUN/Creatinine Ratio 11.42 % 11/24/16 05:55 Glucose 147 mg/dL (65-100) H 11/24/16 05:55 Lactic Acid 2.0 mmol/L (0.7-2.0) 11/22/16 23:22 Calcium 7.9 mg/dL (8.4-10.2) L 11/24/16 05:55 Total Bilirubin < 0.2 mg/dL (0.1-1.2) 11/24/16 05:55 AST 30 units/L (5-40) 11/24/16 05:55 ALT 24 units/L (7-56) 11/24/16 05:55 Alkaline Phosphatase 68 units/L (35-129) 11/24/16 05:55 Total Creatine Kinase 268 units/L (30-135) H 11/23/16 14:55 CK-MB (CK-2) 2.1 ng/mL (0.0-4.0) 11/23/16 14:55 CK-MB (CK-2) Rel Index 0.7 (0-4) 11/23/16 14:55 Troponin T < 0.010 ng/mL (0.00-0.029) 11/23/16 14:55 NT-Pro-B Natriuret Pep 351.7 pg/mL (0-450) 11/22/16 20:43 Total Protein 5.3 g/dL (6.3-8.2) L 11/24/16 05:55 Albumin 2.5 g/dL (3.9-5) L 11/24/16 05:55 Albumin/Globulin Ratio 0.9 % 11/24/16 05:55 Urine Color Yellow (Yellow) 11/22/16 21:59 Urine Turbidity Clear (Clear) 11/22/16 21:59 Urine pH 5.0 (5.0-7.0) 11/22/16 21:59 Ur Specific [place] 1.009 (1.003-1.030) 11/22/16 21:59 Urine Protein <15 mg/dl mg/dL (Negative) 11/22/16 21:59 Urine Glucose (UA) Neg mg/dL (Negative) 11/22/16 21:59 Urine Ketones Neg mg/dL (Negative) 11/22/16 21:59 Urine Blood Neg (Negative) 11/22/16 21:59 Urine Nitrite Neg (Negative) 11/22/16 21:59 Urine Bilirubin Neg (Negative) 11/22/16 21:59 Urine Urobilinogen < 2.0 mg/dL (<2.0) 11/22/16 21:59 Ur Leukocyte Esterase Neg (Negative) 11/22/16 21:59 Urine WBC (Auto) < 1.0 /HPF (0.0-6.0) 11/22/16 21:59 Urine RBC (Auto) < 1.0 /HPF (0.0-6.0) 11/22/16 21:59 U Epithel Cells (Auto) 1.0 /HPF (0-13.0) 11/22/16 21:59 Urine Bacteria (Auto) 1+ /HPF (Negative) 11/22/16 21:59 Urine Mucus Few /HPF 11/22/16 21:59 - Imaging and Cardiology Chest x-ray: image reviewed
[2016-11-25] MEDS: ZITHROMAX PO SCH (10:32)
[2016-11-25] MEDS: CYMBALTA PO SCH ×2 (10:33→21:46)
[2016-11-25] MEDS: MS CONTIN ER PO SCH ×2 (10:33→21:47)
[2016-11-25] MEDS: FOLVITE PO SCH (10:34)
[2016-11-25] MEDS: REMERON PO SCH (10:34)
[2016-11-25] MEDS: LOVENOX SUB-Q SCH (10:34)
[2016-11-25] MEDS: NAPROSYN PO SCH ×2 (10:34→21:45)
[2016-11-25] MEDS: PEPCID PO SCH ×2 (10:44→21:46)
[2016-11-26] MEDS: DUONEB 0.5 MG-3 MG/3 ML SOLN IH SCH ×4 (02:11→21:38)
[2016-11-26] MEDS: LASIX IV SCH ×3 (05:54→17:48)
[2016-11-26 07:06] LABS: BUN/Creatinine Ratio 13.75; Blood Urea Nitrogen 11 mg/dL (7-17); Calcium 7.5 mg/dL (8.4-10.2); Carbon Dioxide 33 mmol/L (22-30); Chloride 96.7 mmol/L (98-107); Glucose 145 mg/dL (65-100); Sodium 145 mmol/L (137-145)
[2016-11-26] MEDS: PERCOCET 5/325 PO PRN (07:10)
[2016-11-26 07:13] LABS: Anion Gap 18 mmol/L
[2016-11-26 07:15] LABS: Potassium 2.4 mmol/L (3.6-5.0)
[2016-11-26] MEDS ORDERED: K-DUR PO ONE ×3 (08:17→11:00)
[2016-11-26] MEDS: PEPCID PO SCH ×2 (11:05→21:47)
[2016-11-26] MEDS: MS CONTIN ER PO SCH ×2 (11:05→21:46)
[2016-11-26] MEDS: FOLVITE PO SCH (11:05)
[2016-11-26] MEDS: CYMBALTA PO SCH ×2 (11:05→21:47)
[2016-11-26] MEDS: NEURONTIN PO SCH ×3 (11:06→20:47)
[2016-11-26] MEDS: ZITHROMAX PO SCH (11:06)
[2016-11-26] MEDS: REMERON PO SCH (11:06)
[2016-11-26] MEDS: NAPROSYN PO SCH ×3 (11:07→22:50)
[2016-11-26] MEDS: LOVENOX SUB-Q SCH (11:08)
--- NOTE | 2016-11-26 12:54 | Progress Note ---
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 Acute hypoxic respiratory failure, still on 3 L 2. Asthma exacerbation 3. Adrenal insufficiency 4. Severe hypokalemia: replace Echo pending Once O2 has been weaned off then discharge History Interval history: Patient seen and examined. Follow up on shortness of breath. Overnight uneventful. No cp, abdominal pain, n/v or severe headaches. Imaging, old records , testing, labs, nursing notes reviewed. Hospitalist Physical - Physical exam Narrative exam: GEN: WDWN, NAD, AWAKE, ALERT, ORIENTATED 3, obesity BMI of 46 CVS: RRR, NORMAL S1S2 LUNGS/CHEST: Bibasilar crackles, NORMAL CHEST EXPANSION B, GOOD AIR ENTRY B ABD: SOFT, NTND, GBS, NO REBOUND OR GUARDING EXT/SKIN: Bilateral leg edema MSK: FROM X 4 EXTREMITIES NEURO: CN 2-12 GROSSLY INTACT, NO NEW FOCAL DEFICITS PSY: CALM - Constitutional Vitals: Temp Pulse Resp BP Pulse Ox 98.2 F 75 18 93/63 93 11/26/16 09:18 11/26/16 09:18 11/26/16 09:18 11/26/16 09:18 11/26/16 09:18 General appearance: Present: no acute distress Results - Labs CBC & Chem 7: 11/24/16 05:55 11/26/16 05:43 Labs: Laboratory Last Values WBC 4.1 K/mm3 (4.5-11.0) L 11/24/16 05:55 RBC 3.03 M/mm3 (3.65-5.03) L 11/24/16 05:55 Hgb 9.9 gm/dl (10.1-14.3) L 11/24/16 05:55 Hct 29.9 % (30.3-42.9) L 11/24/16 05:55 MCV 99 fl (79-97) H 11/24/16 05:55 MCH 33 pg (28-32) H 11/24/16 05:55 MCHC 33 % (30-34) 11/24/16 05:55 RDW 14.2 % (13.2-15.2) 11/24/16 05:55 Plt Count 175 K/mm3 (140-440) 11/24/16 05:55 Lymph % (Auto) 19.5 % (13.4-35.0) 11/24/16 05:55 [place] % (Auto) 11.5 % (0.0-7.3) H 11/24/16 05:55 Eos % (Auto) 0.0 % (0.0-4.3) 11/24/16 05:55 Baso % (Auto) 0.1 % (0.0-1.8) 11/24/16 05:55 Lymph # 0.8 K/mm3 (1.2-5.4) L 11/24/16 05:55 [place] # 0.5 K/mm3 (0.0-0.8) 11/24/16 05:55 Eos # 0.0 K/mm3 (0.0-0.4) 11/24/16 05:55 Baso # 0.0 K/mm3 (0.0-0.1) 11/24/16 05:55 Seg Neutrophils % 68.9 % (40.0-70.0) 11/24/16 05:55 Seg Neutrophils # 2.9 K/mm3 (1.8-7.7) 11/24/16 05:55 PT 13.9 Sec. (12.2-14.9) 11/22/16 20:43 INR 1.08 (0.87-1.13) 11/22/16 20:43 POC ABG pH 7.373 (7.35-7.45) 11/22/16 22:18 POC ABG pCO2 44.3 (35-45) 11/22/16 22:18 POC ABG pO2 66 (80-105) L 11/22/16 22:18 POC ABG HCO3 25.8 11/22/16 22:18 POC ABG Total CO2 27 11/22/16 22:18 POC ABG O2 Sat 92 11/22/16 22:18 POC ABG Base Excess 1 11/22/16 22:18 Sodium 145 mmol/L (137-145) 11/26/16 05:43 Potassium 2.4 mmol/L (3.6-5.0) L* D 11/26/16 05:43 Chloride 96.7 mmol/L (98-107) L 11/26/16 05:43 Carbon Dioxide 33 mmol/L (22-30) H D 11/26/16 05:43 Anion Gap 18 mmol/L 11/26/16 05:43 BUN 11 mg/dL (7-17) 11/26/16 05:43 Creatinine 0.8 mg/dL (0.7-1.2) 11/26/16 05:43 Estimated GFR > 60 ml/min 11/26/16 05:43 BUN/Creatinine Ratio 13.75 % 11/26/16 05:43 Glucose 145 mg/dL (65-100) H 11/26/16 05:43 Lactic Acid 2.0 mmol/L (0.7-2.0) 11/22/16 23:22 Calcium 7.5 mg/dL (8.4-10.2) L 11/26/16 05:43 Total Bilirubin < 0.2 mg/dL (0.1-1.2) 11/24/16 05:55 AST 30 units/L (5-40) 11/24/16 05:55 ALT 24 units/L (7-56) 11/24/16 05:55 Alkaline Phosphatase 68 units/L (35-129) 11/24/16 05:55 Total Creatine Kinase 268 units/L (30-135) H 11/23/16 14:55 CK-MB (CK-2) 2.1 ng/mL (0.0-4.0) 11/23/16 14:55 CK-MB (CK-2) Rel Index 0.7 (0-4) 11/23/16 14:55 Troponin T < 0.010 ng/mL (0.00-0.029) 11/23/16 14:55 NT-Pro-B Natriuret Pep 351.7 pg/mL (0-450) 11/22/16 20:43 Total Protein 5.3 g/dL (6.3-8.2) L 11/24/16 05:55 Albumin 2.5 g/dL (3.9-5) L 11/24/16 05:55 Albumin/Globulin Ratio 0.9 % 11/24/16 05:55 Urine Color Yellow (Yellow) 11/22/16 21:59 Urine Turbidity Clear (Clear) 11/22/16 21:59 Urine pH 5.0 (5.0-7.0) 11/22/16 21:59 Ur Specific [place] 1.009 (1.003-1.030) 11/22/16 21:59 Urine Protein <15 mg/dl mg/dL (Negative) 11/22/16 21:59 Urine Glucose (UA) Neg mg/dL (Negative) 11/22/16 21:59 Urine Ketones Neg mg/dL (Negative) 11/22/16 21:59 Urine Blood Neg (Negative) 11/22/16 21:59 Urine Nitrite Neg (Negative) 11/22/16 21:59 Urine Bilirubin Neg (Negative) 11/22/16 21:59 Urine Urobilinogen < 2.0 mg/dL (<2.0) 11/22/16 21:59 Ur Leukocyte Esterase Neg (Negative) 11/22/16 21:59 Urine WBC (Auto) < 1.0 /HPF (0.0-6.0) 11/22/16 21:59 Urine RBC (Auto) < 1.0 /HPF (0.0-6.0) 11/22/16 21:59 U Epithel Cells (Auto) 1.0 /HPF (0-13.0) 11/22/16 21:59 Urine Bacteria (Auto) 1+ /HPF (Negative) 11/22/16 21:59 Urine Mucus Few /HPF 11/22/16 21:59 - Imaging and Cardiology Chest x-ray: report reviewed
[2016-11-26] MEDS: NON-FORMULARY (Abacavir/Dolutegravir/Lamivudi [Triumeq Tablet] 1 EACH) PO SCH (13:11)
[2016-11-27] MEDS: DUONEB 0.5 MG-3 MG/3 ML SOLN IH SCH ×4 (01:37→19:50)
[2016-11-27] MEDS: LASIX IV SCH ×3 (05:34→18:39)
[2016-11-27 08:56] LABS: Anion Gap 17 mmol/L; Blood Urea Nitrogen 10 mg/dL (7-17); Carbon Dioxide 35 mmol/L (22-30); Chloride 92.1 mmol/L (98-107); Glucose 106 mg/dL (65-100); Sodium 141 mmol/L (137-145)
[2016-11-27 09:11] LABS: Potassium 2.8 mmol/L (3.6-5.0)
--- NOTE | 2016-11-27 09:52 | Echocardiography Report ---
Transthoracic Echocardiogram Indication: HF BP: 96/51 Conclusions *The study is technically limited due to poor acoustic windows. *Global left ventricular wall motion and contractility are within normal limits. *The estimated ejection fraction is 55-60%. *The right ventricular global systolic function is normal. *There is no evidence of aortic regurgitation. *There is no evidence of mitral regurgitation. *There is mild tricuspid regurgitation. *The right ventricular systolic pressure is estimated to be 15-20 mmHg. *There is no evidence of pulmonic regurgitation. *There is no pericardial effusion. Findings Procedure Info: The study quality is fair. The study is technically limited due to poor acoustic windows. Left Ventricle: The left ventricular chamber size is normal. Global left ventricular wall motion and contractility are within normal limits. Global left ventricular systolic function is normal. The estimated ejection fraction is 55-60%. Normal left ventricular diastolic filling is observed. Left Atrium: The left atrium is normal in size with no visual thrombus identified. Right Ventricle: The right ventricular cavity size is normal. The right ventricular global systolic function is normal. Right Atrium: The right atrium appears normal. The interatrial septum appears normal. Aortic Valve: The aortic valve structure is normal. There is no evidence of aortic regurgitation. There is no evidence of aortic stenosis. Mitral Valve: The mitral valve leaflets appear normal. There is no evidence of mitral regurgitation. There is no evidence of mitral stenosis. Tricuspid Valve: The tricuspid valve leaflets are normal. There is mild tricuspid regurgitation. The right ventricular systolic pressure is estimated to be 15-20 mmHg. There is no tricuspid stenosis. Pulmonic Valve: The pulmonic valve appears normal. There is no evidence of pulmonic regurgitation. There is no pulmonic stenosis. Pericardium: There is no pericardial effusion. Aorta: There is no dilatation of the ascending aorta. Venous: The inferior vena cava is not visualized. The inferior vena cava appears normal in size. Measurements Chambers MM Name Value Normal Range Ao root diameter (MM) 3.4 cm (2 - 3.7) LA dimension (AP) MM 3.4 cm (1.9 - 4) LA:Ao ratio (MM) 1 ratio - AV cusp separation (MM) 2.1 cm (1.5 - 2.6) Chambers 2D Name Value Normal Range RVIDd (AP) 2D 3.07 cm (0.9 - 2.6) IVSd (2D) 1.02 cm (0.6 - 1.1) LVPWd (2D) 0.95 cm (0.6 - 1.1) IVS:LVPW ratio (2D) 1.08 ratio - LVIDd (2D) 5.02 cm (3.7 - 5.6) LVIDs (2D) 3.51 cm (2 - 3.8) LV FS (Teichholz) (2D) 30.1 % - LV FS (cube) (2D) 30.1 % - EF Teichholz (2D) 57 % - Ao root diameter (2D) 2.8 cm (2 - 3.7) LA dimension (AP) 2D 3 cm (1.9 - 4) LA:Ao ratio (2D) 1.07 ratio - Volumes/Mass Name Value Normal Range LA ESV SP 4CH (MOD) 33 ml - LA ESV SP 2CH (MOD) 49 ml - LA ESV BP (MOD) 42 ml - LA ESV BP (MOD) index 21 ml/m2 - Diastolic/Systolic Function Name Value Normal Range MV E-wave Vmax 1.05 m/sec - MV deceleration time 132 msec - MV A-wave Vmax 0.76 m/sec - MV E:A ratio 1.4 ratio - LV septal e' Vmax 0.13 m/sec - LV lateral e' Vmax 0.13 m/sec - LV E:e' septal ratio 8 ratio - LV E:e' lateral ratio 7.8 ratio - Aortic Valve Name Value Normal Range AV Vmax 1.44 m/sec - AV peak gradient 8 mmHg - LVOT diameter 2.1 cm - LVOT Vmax 0.92 m/sec - LVOT peak gradient 3 mmHg - JONAH (continuity Vmax) 2.21 cm2 - Tricuspid Valve Name Value Normal Range TR Vmax 1.81 m/sec - TR peak gradient 13 mmHg - Pulmonic Valve/Qp:Qs Name Value Normal Range PV Vmax 0.75 m/sec - PV peak gradient 2 mmHg - PV acceleration time 172 msec -
[2016-11-27] MEDS: MS CONTIN ER PO SCH ×2 (10:39→22:50)
[2016-11-27] MEDS: REMERON PO SCH (10:39)
[2016-11-27] MEDS: ZITHROMAX PO SCH (10:39)
[2016-11-27] MEDS: NEURONTIN PO SCH ×3 (10:39→20:19)
[2016-11-27] MEDS: CYMBALTA PO SCH ×2 (10:40→22:20)
[2016-11-27] MEDS: PEPCID PO SCH ×2 (10:40→22:50)
[2016-11-27] MEDS: NAPROSYN PO SCH (10:40)
[2016-11-27] MEDS: FOLVITE PO SCH (10:41)
[2016-11-27] MEDS: LOVENOX SUB-Q SCH (10:41)
[2016-11-27] MEDS: NON-FORMULARY (Abacavir/Dolutegravir/Lamivudi [Triumeq Tablet] 1 EACH) PO SCH (10:42)
[2016-11-27] MEDS ORDERED: K-DUR PO ONE (11:00)
--- NOTE | 2016-11-27 13:42 | Progress Note ---
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 Acute hypoxic respiratory failure, still on 3 L 2. Asthma exacerbation 3. Adrenal insufficiency 4. Severe hypokalemia: replace Transthoracic echo 11/24/2016: Study is technically limited due to poor acoustic window, global left ventricular wall motion and contractility are within normal limits, estimated EF is 5560 %, right ventricular global systolic function is normal, there is mild tricuspid regurgitation, right ventricular systolic pressures estimated to be 15-20 mmHg Once O2 has been weaned off then discharge History Interval history: Patient seen and examined. Follow up on shortness of breath. Overnight uneventful. No cp, abdominal pain, n/v or severe headaches. Imaging, old records , testing, labs, nursing notes reviewed. Still on 3 L oxygen. Hospitalist Physical - Physical exam Narrative exam: GEN: WDWN, NAD, AWAKE, ALERT, ORIENTATED 3, obesity BMI of 46 CVS: RRR, NORMAL S1S2 LUNGS/CHEST: Bibasilar crackles, NORMAL CHEST EXPANSION B, GOOD AIR ENTRY B ABD: SOFT, NTND, GBS, NO REBOUND OR GUARDING EXT/SKIN: Bilateral leg edema MSK: FROM X 4 EXTREMITIES NEURO: CN 2-12 GROSSLY INTACT, NO NEW FOCAL DEFICITS PSY: CALM - Constitutional Vitals: Temp Pulse Resp BP Pulse Ox 97.5 F L 87 18 136/83 95 11/27/16 13:26 11/27/16 13:26 11/27/16 13:26 11/27/16 13:26 11/27/16 13:26 General appearance: Present: no acute distress Results - Labs CBC & Chem 7: 11/24/16 05:55 11/27/16 08:21 Labs: Laboratory Last Values WBC 4.1 K/mm3 (4.5-11.0) L 11/24/16 05:55 RBC 3.03 M/mm3 (3.65-5.03) L 11/24/16 05:55 Hgb 9.9 gm/dl (10.1-14.3) L 11/24/16 05:55 Hct 29.9 % (30.3-42.9) L 11/24/16 05:55 MCV 99 fl (79-97) H 11/24/16 05:55 MCH 33 pg (28-32) H 11/24/16 05:55 MCHC 33 % (30-34) 11/24/16 05:55 RDW 14.2 % (13.2-15.2) 11/24/16 05:55 Plt Count 175 K/mm3 (140-440) 11/24/16 05:55 Lymph % (Auto) 19.5 % (13.4-35.0) 11/24/16 05:55 [place] % (Auto) 11.5 % (0.0-7.3) H 11/24/16 05:55 Eos % (Auto) 0.0 % (0.0-4.3) 11/24/16 05:55 Baso % (Auto) 0.1 % (0.0-1.8) 11/24/16 05:55 Lymph # 0.8 K/mm3 (1.2-5.4) L 11/24/16 05:55 [place] # 0.5 K/mm3 (0.0-0.8) 11/24/16 05:55 Eos # 0.0 K/mm3 (0.0-0.4) 11/24/16 05:55 Baso # 0.0 K/mm3 (0.0-0.1) 11/24/16 05:55 Seg Neutrophils % 68.9 % (40.0-70.0) 11/24/16 05:55 Seg Neutrophils # 2.9 K/mm3 (1.8-7.7) 11/24/16 05:55 PT 13.9 Sec. (12.2-14.9) 11/22/16 20:43 INR 1.08 (0.87-1.13) 11/22/16 20:43 POC ABG pH 7.373 (7.35-7.45) 11/22/16 22:18 POC ABG pCO2 44.3 (35-45) 11/22/16 22:18 POC ABG pO2 66 (80-105) L 11/22/16 22:18 POC ABG HCO3 25.8 11/22/16 22:18 POC ABG Total CO2 27 11/22/16 22:18 POC ABG O2 Sat 92 11/22/16 22:18 POC ABG Base Excess 1 11/22/16 22:18 Sodium 141 mmol/L (137-145) 11/27/16 08:21 Potassium 2.8 mmol/L (3.6-5.0) L* 11/27/16 08:21 Chloride 92.1 mmol/L (98-107) L 11/27/16 08:21 Carbon Dioxide 35 mmol/L (22-30) H 11/27/16 08:21 Anion Gap 17 mmol/L 11/27/16 08:21 BUN 10 mg/dL (7-17) 11/27/16 08:21 Creatinine 0.8 mg/dL (0.7-1.2) 11/27/16 08:21 Estimated GFR > 60 ml/min 11/27/16 08:21 BUN/Creatinine Ratio 12.50 % 11/27/16 08:21 Glucose 106 mg/dL (65-100) H 11/27/16 08:21 Lactic Acid 2.0 mmol/L (0.7-2.0) 11/22/16 23:22 Calcium 8.0 mg/dL (8.4-10.2) L 11/27/16 08:21 Total Bilirubin < 0.2 mg/dL (0.1-1.2) 11/24/16 05:55 AST 30 units/L (5-40) 11/24/16 05:55 ALT 24 units/L (7-56) 11/24/16 05:55 Alkaline Phosphatase 68 units/L (35-129) 11/24/16 05:55 Total Creatine Kinase 268 units/L (30-135) H 11/23/16 14:55 CK-MB (CK-2) 2.1 ng/mL (0.0-4.0) 11/23/16 14:55 CK-MB (CK-2) Rel Index 0.7 (0-4) 11/23/16 14:55 Troponin T < 0.010 ng/mL (0.00-0.029) 11/23/16 14:55 NT-Pro-B Natriuret Pep 351.7 pg/mL (0-450) 11/22/16 20:43 Total Protein 5.3 g/dL (6.3-8.2) L 11/24/16 05:55 Albumin 2.5 g/dL (3.9-5) L 11/24/16 05:55 Albumin/Globulin Ratio 0.9 % 11/24/16 05:55 Urine Color Yellow (Yellow) 11/22/16 21:59 Urine Turbidity Clear (Clear) 11/22/16 21:59 Urine pH 5.0 (5.0-7.0) 11/22/16 21:59 Ur Specific [place] 1.009 (1.003-1.030) 11/22/16 21:59 Urine Protein <15 mg/dl mg/dL (Negative) 11/22/16 21:59 Urine Glucose (UA) Neg mg/dL (Negative) 11/22/16 21:59 Urine Ketones Neg mg/dL (Negative) 11/22/16 21:59 Urine Blood Neg (Negative) 11/22/16 21:59 Urine Nitrite Neg (Negative) 11/22/16 21:59 Urine Bilirubin Neg (Negative) 11/22/16 21:59 Urine Urobilinogen < 2.0 mg/dL (<2.0) 11/22/16 21:59 Ur Leukocyte Esterase Neg (Negative) 11/22/16 21:59 Urine WBC (Auto) < 1.0 /HPF (0.0-6.0) 11/22/16 21:59 Urine RBC (Auto) < 1.0 /HPF (0.0-6.0) 11/22/16 21:59 U Epithel Cells (Auto) 1.0 /HPF (0-13.0) 11/22/16 21:59 Urine Bacteria (Auto) 1+ /HPF (Negative) 11/22/16 21:59 Urine Mucus Few /HPF 11/22/16 21:59
[2016-11-28] MEDS: DUONEB 0.5 MG-3 MG/3 ML SOLN IH SCH ×4 (03:26→21:45)
[2016-11-28 06:54] LABS: Hematocrit 30.6 % (30.3-42.9); Hemoglobin 10.3 gm/dl (10.1-14.3); Mean Corpuscular HGB Conc 34 % (30-34); Mean Corpuscular Hemoglobin 33 pg (28-32); Mean Corpuscular Volume 98 fl (79-97); Platelet Count 230 K/mm3 (140-440); Red Blood Count 3.14 M/mm3 (3.65-5.03); Red Cell Distribution Width 14.2 % (13.2-15.2); White Blood Count 5.5 K/mm3 (4.5-11.0)
[2016-11-28 07:10] LABS: Anion Gap 16 mmol/L; Blood Urea Nitrogen 12 mg/dL (7-17); Calcium 8.1 mg/dL (8.4-10.2); Carbon Dioxide 35 mmol/L (22-30); Chloride 97.4 mmol/L (98-107); Glucose 94 mg/dL (65-100); Sodium 145 mmol/L (137-145)
[2016-11-28 07:26] LABS: Potassium 2.8 mmol/L (3.6-5.0)
[2016-11-28] MEDS: LASIX IV SCH (07:35)
[2016-11-28] MEDS: NEURONTIN PO SCH ×3 (08:30→21:29)
[2016-11-28] MEDS: PERCOCET 5/325 PO PRN ×2 (08:30→14:36)
[2016-11-28] MEDS: MS CONTIN ER PO SCH ×2 (09:33→21:30)
[2016-11-28] MEDS: NAPROSYN PO SCH ×2 (09:33→21:28)
[2016-11-28] MEDS: PEPCID PO SCH ×2 (09:34→21:29)
[2016-11-28] MEDS: NON-FORMULARY (Abacavir/Dolutegravir/Lamivudi [Triumeq Tablet] 1 EACH) PO SCH (09:34)
[2016-11-28] MEDS: REMERON PO SCH (09:34)
[2016-11-28] MEDS: ZITHROMAX PO SCH (09:34)
[2016-11-28] MEDS: LOVENOX SUB-Q SCH (09:34)
[2016-11-28] MEDS: FOLVITE PO SCH (09:34)
[2016-11-28] MEDS: CYMBALTA PO SCH ×2 (09:34→21:30)
[2016-11-28] MEDS ORDERED: K-DUR PO ONE (11:00)
--- NOTE | 2016-11-28 16:00 | Progress Note ---
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 Acute hypoxic respiratory failure, now off oxygen encouraged to ambulate today to ensure complete resolution. Echocardiogram reviewed in detail EF reserved no diastolic dysfunction. Patient chronically on steroids question if fluid accumulation is likely secondary to HIV medications and steroids. 2. Asthma exacerbation: Resolved will need long-term steroid taper and also inhaled steroids on discharge 3. Adrenal insufficiency: Continue present therapy 4. Severe hypokalemia: replace Case discussed extensively with the patient and also with family member. I also recommended outpatient pulmonary evaluation for noted tracheomalacia on echo. Transthoracic echo 11/24/2016: Study is technically limited due to poor acoustic window, global left ventricular wall motion and contractility are within normal limits, estimated EF is 5560 %, right ventricular global systolic function is normal, there is mild tricuspid regurgitation, right ventricular systolic pressures estimated to be 15-20 mmHg History Interval history: Patient seen and examined this morning in no acute distress. Follow-up shortness of breath now improving Denies any chest pain, nausea, vomiting, diarrhea No fever noted blood pressure controlled No adverse events reported to me by nursing staff Hospitalist Physical - Physical exam Narrative exam: VITAL SIGNS: Reviewed. GENERAL: The patient appeared well nourished and normally developed. Vital signs as documented. HEAD: No signs of head trauma. Enlarged neck circumference EYES: Pupils are equal. Extraocular motions intact. EARS: Hearing grossly intact. MOUTH: Oropharynx is normal. NECK: No adenopathy, no JVD. CHEST: Chest with clear breath sounds bilaterally. No wheezes, rales, or rhonchi. CARDIAC: Regular rate and rhythm. S1 and S2, without murmurs, gallops, or rubs. VASCULAR: No Edema. Peripheral pulses normal and equal in all extremities. ABDOMEN: Soft, without detectable tenderness. No sign of distention. No rebound or guarding, and no masses palpated. Bowel Sounds normal. MUSCULOSKELETAL: Good range of motion of all major joints. Extremities without clubbing, cyanosis or edema. NEUROLOGIC EXAM: Alert and oriented x 3. No focal sensory or strength deficits. Speech normal. Follows commands. PSYCHIATRIC: Mood normal. SKIN: No rash or lesions. - Constitutional Vitals: Temp Pulse Resp BP Pulse Ox 97.6 F 104 H 16 112/71 94 11/28/16 12:40 11/28/16 13:45 11/28/16 13:45 11/28/16 12:40 11/28/16 12:40 General appearance: Present: no acute distress Results - Labs CBC & Chem 7: 11/28/16 06:29 11/29/16 06:28 Labs: Laboratory Last Values WBC 5.5 K/mm3 (4.5-11.0) 11/28/16 06:29 RBC 3.14 M/mm3 (3.65-5.03) L 11/28/16 06:29 Hgb 10.3 gm/dl (10.1-14.3) 11/28/16 06:29 Hct 30.6 % (30.3-42.9) 11/28/16 06:29 MCV 98 fl (79-97) H 11/28/16 06:29 MCH 33 pg (28-32) H 11/28/16 06:29 MCHC 34 % (30-34) 11/28/16 06:29 RDW 14.2 % (13.2-15.2) 11/28/16 06:29 Plt Count 230 K/mm3 (140-440) 11/28/16 06:29 Lymph % (Auto) 19.5 % (13.4-35.0) 11/24/16 05:55 [place] % (Auto) 11.5 % (0.0-7.3) H 11/24/16 05:55 Eos % (Auto) 0.0 % (0.0-4.3) 11/24/16 05:55 Baso % (Auto) 0.1 % (0.0-1.8) 11/24/16 05:55 Lymph # 0.8 K/mm3 (1.2-5.4) L 11/24/16 05:55 [place] # 0.5 K/mm3 (0.0-0.8) 11/24/16 05:55 Eos # 0.0 K/mm3 (0.0-0.4) 11/24/16 05:55 Baso # 0.0 K/mm3 (0.0-0.1) 11/24/16 05:55 Seg Neutrophils % 68.9 % (40.0-70.0) 11/24/16 05:55 Seg Neutrophils # 2.9 K/mm3 (1.8-7.7) 11/24/16 05:55 PT 13.9 Sec. (12.2-14.9) 11/22/16 20:43 INR 1.08 (0.87-1.13) 11/22/16 20:43 POC ABG pH 7.373 (7.35-7.45) 11/22/16 22:18 POC ABG pCO2 44.3 (35-45) 11/22/16 22:18 POC ABG pO2 66 (80-105) L 11/22/16 22:18 POC ABG HCO3 25.8 11/22/16 22:18 POC ABG Total CO2 27 11/22/16 22:18 POC ABG O2 Sat 92 11/22/16 22:18 POC ABG Base Excess 1 11/22/16 22:18 Sodium 145 mmol/L (137-145) 11/28/16 06:29 Potassium 2.8 mmol/L (3.6-5.0) L* 11/28/16 06:29 Chloride 97.4 mmol/L (98-107) L 11/28/16 06:29 Carbon Dioxide 35 mmol/L (22-30) H 11/28/16 06:29 Anion Gap 16 mmol/L 11/28/16 06:29 BUN 12 mg/dL (7-17) 11/28/16 06:29 Creatinine 0.8 mg/dL (0.7-1.2) 11/28/16 06:29 Estimated GFR > 60 ml/min 11/28/16 06:29 BUN/Creatinine Ratio 15.00 % 11/28/16 06:29 Glucose 94 mg/dL (65-100) 11/28/16 06:29 Lactic Acid 2.0 mmol/L (0.7-2.0) 11/22/16 23:22 Calcium 8.1 mg/dL (8.4-10.2) L 11/28/16 06:29 Total Bilirubin < 0.2 mg/dL (0.1-1.2) 11/24/16 05:55 AST 30 units/L (5-40) 11/24/16 05:55 ALT 24 units/L (7-56) 11/24/16 05:55 Alkaline Phosphatase 68 units/L (35-129) 11/24/16 05:55 Total Creatine Kinase 268 units/L (30-135) H 11/23/16 14:55 CK-MB (CK-2) 2.1 ng/mL (0.0-4.0) 11/23/16 14:55 CK-MB (CK-2) Rel Index 0.7 (0-4) 11/23/16 14:55 Troponin T < 0.010 ng/mL (0.00-0.029) 11/23/16 14:55 NT-Pro-B Natriuret Pep 351.7 pg/mL (0-450) 11/22/16 20:43 Total Protein 5.3 g/dL (6.3-8.2) L 11/24/16 05:55 Albumin 2.5 g/dL (3.9-5) L 11/24/16 05:55 Albumin/Globulin Ratio 0.9 % 11/24/16 05:55 Urine Color Yellow (Yellow) 11/22/16 21:59 Urine Turbidity Clear (Clear) 11/22/16 21:59 Urine pH 5.0 (5.0-7.0) 11/22/16 21:59 Ur Specific [place] 1.009 (1.003-1.030) 11/22/16 21:59 Urine Protein <15 mg/dl mg/dL (Negative) 11/22/16 21:59 Urine Glucose (UA) Neg mg/dL (Negative) 11/22/16 21:59 Urine Ketones Neg mg/dL (Negative) 11/22/16 21:59 Urine Blood Neg (Negative) 11/22/16 21:59 Urine Nitrite Neg (Negative) 11/22/16 21:59 Urine Bilirubin Neg (Negative) 11/22/16 21:59 Urine Urobilinogen < 2.0 mg/dL (<2.0) 11/22/16 21:59 Ur Leukocyte Esterase Neg (Negative) 11/22/16 21:59 Urine WBC (Auto) < 1.0 /HPF (0.0-6.0) 11/22/16 21:59 Urine RBC (Auto) < 1.0 /HPF (0.0-6.0) 11/22/16 21:59 U Epithel Cells (Auto) 1.0 /HPF (0-13.0) 11/22/16 21:59 Urine Bacteria (Auto) 1+ /HPF (Negative) 11/22/16 21:59 Urine Mucus Few /HPF 11/22/16 21:59 - Imaging and Cardiology Chest x-ray: image reviewed
[2016-11-29] MEDS: DUONEB 0.5 MG-3 MG/3 ML SOLN IH SCH ×2 (01:22→08:18)
[2016-11-29 07:05] LABS: Anion Gap 14 mmol/L; Blood Urea Nitrogen 10 mg/dL (7-17); Calcium 8.5 mg/dL (8.4-10.2); Carbon Dioxide 33 mmol/L (22-30); Chloride 103.8 mmol/L (98-107); Glucose 95 mg/dL (65-100); Potassium 3.2 mmol/L (3.6-5.0); Sodium 148 mmol/L (137-145)
--- NOTE | 2016-11-29 08:02 | Discharge Summary ---
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 She was started on IV steroids and echocardiogram was obtained which showed a reserved diastolic function and preserved systolic function with EF of 55-60%. He did also show concern for tracheomalacia. 4 which discussed with the patient and she is to follow up with pulmonology outpatient. It appears she did have some acute bronchitis for which antibiotic was started and patient has been improving. I'll discuss this extensively with her about weight loss although her HIV medications to be precluding this. She was weaned off her oxygen Discharge diagnosis 1. Acute hypoxic respiratory failure-resolved 2. Asthma exacerbation-resolved 3. Adrenal insufficiency 4. Severe hypokalemia: replace 5. Obesity 6. Tracheomalacia Disposition: DISCHARGED TO HOME OR SELFCARE Time spent for discharge: 35 mins Core Measure Documentation - Palliative Care Palliative Care/ Comfort Measures: Not Applicable - Core Measures Any of the following diagnoses?: none - VTE Discharge Requirements Deep Vein Thrombosis/Pulmonary Embolism Present on Admission: No Exam - Physical Exam Narrative exam: VITAL SIGNS: Reviewed. GENERAL: The patient appeared well nourished and normally developed. Vital signs as documented. HEAD: No signs of head trauma. Enlarged neck circumference EYES: Pupils are equal. Extraocular motions intact. EARS: Hearing grossly intact. MOUTH: Oropharynx is normal. NECK: No adenopathy, no JVD. CHEST: Chest with clear breath sounds bilaterally. No wheezes, rales, or rhonchi. CARDIAC: Regular rate and rhythm. S1 and S2, without murmurs, gallops, or rubs. VASCULAR: No Edema. Peripheral pulses normal and equal in all extremities. ABDOMEN: Soft, without detectable tenderness. No sign of distention. No rebound or guarding, and no masses palpated. Bowel Sounds normal. MUSCULOSKELETAL: Good range of motion of all major joints. Extremities without clubbing, cyanosis or edema. NEUROLOGIC EXAM: Alert and oriented x 3. No focal sensory or strength deficits. Speech normal. Follows commands. PSYCHIATRIC: Mood normal. SKIN: No rash or lesions. - Constitutional Vitals: Temp Pulse Resp BP Pulse Ox 98.1 F 88 20 99/56 96 11/29/16 05:07 11/29/16 05:07 11/29/16 05:07 11/29/16 05:07 11/29/16 05:07 Plan Activity: advance as tolerated, fall precautions Diet: low salt Special Instructions: record daily weights, record daily BP diary Additional Instructions: follow with Public Address Systems Mechanic in refrence to noted Tracheomalcia on echo. PATIENT SHOULD FINISH STEROID TAPER THEN RESTART HOME PREDNISONE Follow up with: [facility] [Provider Group] - 7 Days ANYA DAVENPORT MD [Staff Physician] - 7 Days PRIMARY CAREMD [Primary Care Provider] - 3-5 Days Prescriptions: ALBUTEROL Inhaler [ProAir HFA Inhaler] 2 puff IH QID PRN #1 inhalation PRN Reason: Shortness Of Breath Montelukast [Singulair] 10 mg PO QPM #30 tablet Azithromycin [Zithromax TAB] 500 mg PO QDAY #5 tablet Prednisone [predniSONE 10 mg (6-Day Pack, 21 Tabs)] 10 mg PO .TAPER #1 tab.ds.pk Furosemide [Lasix TAB] 20 mg PO Q48HR #15 tablet
[2016-11-29] MEDS: PERCOCET 5/325 PO PRN (08:14)
[2016-11-29] MEDS: NEURONTIN PO SCH (08:15)
[2016-11-29] MEDS ORDERED: K-DUR PO ONE (09:00)
[2016-11-29] MEDS: NAPROSYN PO SCH (09:11)
[2016-11-29] MEDS: CYMBALTA PO SCH (09:12)
[2016-11-29] MEDS: FOLVITE PO SCH (09:12)
[2016-11-29] MEDS: ZITHROMAX PO SCH (09:12)
[2016-11-29] MEDS: MS CONTIN ER PO SCH (09:12)
[2016-11-29] MEDS: PEPCID PO SCH (09:12)
[2016-11-29] MEDS: NON-FORMULARY (Abacavir/Dolutegravir/Lamivudi [Triumeq Tablet] 1 EACH) PO SCH (09:13)
[2016-11-29] MEDS: REMERON PO SCH (09:13)
[2016-11-29] MEDS: LOVENOX SUB-Q SCH (09:13)
[2016-11-29 09:27] VITALS: BP 128/90
[2016-11-29] MEDS ORDERED: LASIX PO SCH (10:00)
== END 2016-11-29 13:26 | disposition home or self-care (01) | DRG 189 ==
LOC: ED 18:42 → 4A 11-23 03:41
PROVIDERS: ADMIT Internal Medicine; ATTEND Internal Medicine
PROC: 4A033R1 Measurement of Arterial Saturation, Peripheral, Percutaneous Approach (ICD-10-PCS; principal; 2016-11-22)
DX: J96.01 Acute respiratory failure with hypoxia (principal); J45.901 Unspecified asthma with (acute) exacerbation; R65.10 Systemic inflammatory response syndrome (SIRS) of non-infectious origin without acute organ dysfunction; Z68.41 Body mass index [BMI] 40.0-44.9, adult; E27.40 Unspecified adrenocortical insufficiency; K21.9 Gastro-esophageal reflux disease without esophagitis; E66.9 Obesity, unspecified; E87.70 Fluid overload, unspecified; Z21 Asymptomatic human immunodeficiency virus [HIV] infection status; E78.5 Hyperlipidemia, unspecified; I10 Essential (primary) hypertension; J09.X2 Influenza due to identified novel influenza A virus with other respiratory manifestations; E87.6 Hypokalemia; J39.8 Other specified diseases of upper respiratory tract; J20.9 Acute bronchitis, unspecified; Z88.8 Allergy status to other drugs, medicaments and biological substances; Z88.1 Allergy status to other antibiotic agents; Z91.048 Other nonmedicinal substance allergy status; Z79.899 Other long term (current) drug therapy; Z98.890 Other specified postprocedural states; Z82.49 Family history of ischemic heart disease and other diseases of the circulatory system
CPT/HCPCS: 36415; 71020; 71275; 80048; 80053; 81001; 82140; 82533; 82550; 82553; 82803; 83880; 84132; 84484; 85025; 85027; 85610; 87040; 87086; 87400; 93005; 93010; 93306; 94640; 94760; 96361; 96365; 96372; 96375; A9270-GY; J0696; J1650; J1720; J1885; J1940; J2920; J7030; Q9967

== ENCOUNTER 2017-01-01 10:44 | Emergency (ER) | payer OTHER ==
[2017-01-01 11:51] VITALS: BP 122/84
--- NOTE | 2017-01-01 12:19 | Emergency Department Report ---
Chief Complaint: Extremity Problem,Nontraumatic Stated Complaint: LEFT LOWER LEG PAIN Time Seen by Provider: 01/01/17 11:56 - HPI History of Present Illness: 36-year-old female presents today with left lower leg pain and swelling 5 days that worsened 2 days ago. Patient states she has been seen for similar symptoms before and was put on Lasix but ran out on December 15. Patient had a Doppler on December 19 that was negative for blood clots. Positive for history of torn ACL's bilaterally. Patient states that she is currently on naproxen, gabapentin, [place], morphine and should not be in this much pain. Denies fever, chills, chest pain, shortness of breath, abdominal pain. - ROS Review of Systems: Per HPI - Exam Vital Signs: Vital Signs 01/01/17 11:32 Temperature 97.9 F Pulse Rate 103 H Respiratory 20 Rate Blood Pressure 122/84 O2 Sat by Pulse 99 Oximetry Physical Exam: General: 46 year-old we will in no acute distress. Well-developed, well- nourished. CV: Regular rate and rhythm. Lungs: Clear to auscultation bilaterally. Left lower extremity: Positive for pitting edema. Tenderness to palpation over mid lower leg and calf, warm to touch. Peripheral pulses intact. MSE screening note: Focused history and physical exam performed. Due to findings the following was ordered: ED Disposition for MSE Condition: Stable
[2017-01-01 12:42] LABS: Basophils % (Auto) 0.3 % (0.0-1.8); Eosinophils % (Auto) 4.6 % (0.0-4.3); Hematocrit 39.6 % (30.3-42.9); Hemoglobin 12.8 gm/dl (10.1-14.3); Mean Corpuscular HGB Conc 32 % (30-34); Mean Corpuscular Hemoglobin 32 pg (28-32); Mean Corpuscular Volume 97 fl (79-97); Platelet Count 374 K/mm3 (140-440); Red Blood Count 4.07 M/mm3 (3.65-5.03); Red Cell Distribution Width 14.7 % (13.2-15.2)
[2017-01-01 13:00] LABS: Calcium 9.1 mg/dL (8.4-10.2); Potassium 4.1 mmol/L (3.6-5.0)
--- NOTE | 2017-01-02 13:39 | Vascular Lab Report ---
Left Lower Extremity Venous Duplex Study: Reason for Exam: Pain and swelling of the left lower extremity. Comments on the Right: A limited duplex study was done of the proximal veins of the right lower extremity. All veins visualized are freely compressible without evidence of internal echogenicity. Flow is spontaneous and phasic throughout. No evidence of acute or chronic thrombus is seen in any of the vessels visualized. Comments on the Left: All veins visualized are freely compressible without evidence of internal echogenicity. Flow is spontaneous and phasic throughout. No evidence of acute or chronic thrombus is seen in any of the vessels visualized. Soft tissue changes are consistent with edema. Impression: No evidence of acute or chronic deep venous thrombosis in the left lower extremity.
== END 2017-01-01 21:06 | disposition left against medical advice (07) ==
LOC: ED 10:44
DX: M79.662 Pain in left lower leg (principal); M79.89 Other specified soft tissue disorders; Z88.1 Allergy status to other antibiotic agents; Z88.8 Allergy status to other drugs, medicaments and biological substances
CPT/HCPCS: 36415; 80048; 85025

== ENCOUNTER 2017-01-13 20:46 | Emergency (ER) | payer OTHER | END 2017-01-13 20:47 | disposition left against medical advice (07) | LOC: ED 20:46 | DX: Z53.21 Procedure and treatment not carried out due to patient leaving prior to being seen by health care provider (principal); W19.XXXA Unspecified fall, initial encounter ==

== ENCOUNTER 2017-02-14 15:27 | Outpatient (CLI) | payer OTHER ==
--- NOTE | 2017-02-14 16:51 | XRay Report ---
RIGHT HIP: The bony architecture is intact without evidence of fracture or dislocation. No significant soft tissue abnormality is seen. IMPRESSION: Normal right hip.
== END 2017-02-14 15:28 | disposition home or self-care (01) ==
LOC: XRAY 15:27
PROVIDERS: ATTEND Family Medicine
DX: M25.551 Pain in right hip (principal)

== ENCOUNTER 2017-10-12 13:10 | Outpatient (CLI) | payer OTHER ==
--- NOTE | 2017-10-12 14:30 | Mammography Report ---
BILATERAL DIGITAL SCREENING MAMMOGRAM with CAD : 10/12/17 13:10:00 CLINICAL: Routine screening. COMPARISON:04/04/16 FINDINGS: The breasts are heterogeneously dense, which may obscure small masses. No mass, architectural distortion or suspicious calcifications. IMPRESSION: No mammographic evidence of malignancy. BI-RADS CATEGORY: 2 -- Benign RECOMMENDATION: Routine mammographic screening in one year. COMMENT: Patient follow-up letters are generated by our [employer] application.
== END 2017-10-12 13:11 | disposition home or self-care (01) ==
LOC: MAMMO 13:10
PROVIDERS: ATTEND Family Medicine
DX: Z12.31 Encounter for screening mammogram for malignant neoplasm of breast (principal)
CPT/HCPCS: 77067; G0202

== ENCOUNTER 2019-05-15 13:05 | Outpatient (CLI) | payer OTHER ==
--- NOTE | 2019-05-15 14:15 | Mammography Report ---
BILATERAL DIGITAL SCREENING MAMMOGRAMS WITH CAD INDICATION: Screening. COMPARISONS: 10/12/2017 FINDINGS: Craniocaudal and mediolateral oblique views of both breasts were obtained using 2-D digital acquisition. In addition to standard review, the examination was analyzed for possible abnormalities using a computer-assisted detection device (iCAD). The breast tissue is heterogeneously dense, which may obscure small masses. Right parenchymal asymmetries require additional imaging. No architectural distortion or suspicious c alcifications. The left breast is negative. IMPRESSION: Right asymmetries requiring additional workup. Recommend recall for right rolled CC and spot magnific ation views and right breast ultrasound if needed. BI-RADS CATEGORY 0: INCOMPLETE - NEED ADDITIONAL IMAGING EVALUATION AND/OR PRIOR MAMMOGRAMS FOR COMP ARISON Information is entered into a reminder system for a target due date for the next mammogram. The resul ts and recommendations were sent to the patient by mail. Signer Name: Bijan Whitley MD Signed: 05/15/2019 2:10 PM Workstation Name: [id number]
== END 2019-05-15 13:06 | disposition home or self-care (01) ==
LOC: MAMMO 13:05
PROVIDERS: ATTEND Family Medicine
DX: Z12.31 Encounter for screening mammogram for malignant neoplasm of breast (principal); J45.909 Unspecified asthma, uncomplicated; K21.9 Gastro-esophageal reflux disease without esophagitis
CPT/HCPCS: 77067

== ENCOUNTER 2019-10-01 20:14 | Emergency (ER) | payer OTHER ==
[2019-10-01 20:22] VITALS: BP 122/86
--- NOTE | 2019-10-01 21:23 | Event Note ---
ED Screening Note Date of service: 10/01/19 Time: 21:19 ED Screening Note: This is a 49 y.o. F. that presents to the ER with N/V/D, fever, and chills since 09/19. PMH HIV, HLD, bipolar, asthma, renal insufficiency, [place] disease, and GERD. This initial assessment/diagnostic orders/clinical plan/treatment(s) is/are subject to change based on patients health status, clinical progression and re- assessment by fellow clinical providers in the ED. Further treatment and workup at subsequent clinical providers discretion. Patient/guardian urged not to elope from the ED as their condition may be serious if not clinically assessed and managed. Initial orders include: Labs
[2019-10-01 22:51] LABS: Basophils % (Auto) 0.3 % (0.0-1.8); Eosinophils # (Auto) 0.2 K/mm3 (0.0-0.4); Eosinophils % (Auto) 3.3 % (0.0-4.3); Hematocrit 42.3 % (30.3-42.9); Hemoglobin 14.3 gm/dl (10.1-14.3); Lymphocytes # (Auto) 2.6 K/mm3 (1.2-5.4); Lymphocytes % (Auto) 44.6 % (13.4-35.0); Mean Corpuscular HGB Conc 34 % (30-34); Mean Corpuscular Volume 99 fl (79-97); Monocytes # (Auto) 0.4 K/mm3 (0.0-0.8); Monocytes % (Auto) 7.4 % (0.0-7.3); Platelet Count 243 K/mm3 (140-440); Red Blood Count 4.29 M/mm3 (3.65-5.03); Red Cell Distribution Width 14.2 % (13.2-15.2)
[2019-10-01 23:15] LABS: Alanine Aminotransferase 28 units/L (7-56); Albumin 3.7 g/dL (3.9-5); BUN/Creatinine Ratio 4; Blood Urea Nitrogen 3 mg/dL (7-17); Calcium 9.8 mg/dL (8.4-10.2); Hemolysis Index 5
[2019-10-01] MEDS ORDERED: SODIUM CHLORIDE 0.9% 1000 ML 1,000 ML IV ONE (23:26)
[2019-10-01] MEDS ORDERED: METOCLOPRAMIDE 10 MG/2 ML INJ IV ONE (23:26)
[2019-10-01] MEDS ORDERED: HYDROCORTISONE SOD SUCC 100 MG/2 ML VIAL IV ONE (23:26)
--- NOTE | 2019-10-01 23:35 | Emergency Department Report ---
HPI - General Chief Complaint: Nausea/Vomiting/Diarrhea Time Seen by Provider: 10/01/19 21:19 - HPI HPI: Room 36 The patient is a 49-year-old female presenting with a chief complaint of vomiting. The patient states since 09/19/2019 she's had intractable nausea and vomiting. Patient also admits to a fever 10 2F, chills and diarrhea. The patient states she's been taking Zofran 8 mg but has not helped. Patient states she vomits when she drinks water. Patient denies dysuria or hematuria. Patient denies abdominal pain states she had right side pain yesterday. Patient denies sick contacts. Location: [See above] Duration: [See above] Quality: [See above] Severity: [See above] Timing: [See above] Context: [See above] Modifying factors: [See above] Associated signs and symptoms: [see above] ED Past Medical Hx - Past Medical History Previous Medical History?: Yes Hx GERD: Yes Hx Asthma: Yes Hx HIV: Yes (last CD4 1074, february 2016) Additional medical history: Lunenburg's disease. High cholesterol. C-diff - Surgical History Past Surgical History?: Yes Hx Cholecystectomy: Yes Additional Surgical History: Endometrial ablation. x 2. Ovarian cyst. Left knee - Family History Family history: no significant - Social History Smoking Status: Never Smoker Substance Use Type: None (denies illicit drug use) - Medications Home Medications: Home Medications Medication Instructions Recorded Confirmed Last Taken Type Folic Acid 1 mg PO QDAY 01/26/15 11/23/16 01/19/15 History Gabapentin [Neurontin] 600 mg PO TID 01/26/15 11/23/16 01/19/15 History Loratadine [Claritin] 10 mg PO DAILY 03/04/15 11/23/16 Unknown History Naproxen [Naprosyn TAB] 500 mg PO BID #20 tablet 11/17/15 11/23/16 Unknown Rx Potassium Chloride [Klor-Con 10] 10 meq PO DAILY #7 tablet.er 11/17/15 11/23/16 Unknown Rx raNITIdine HCl [Zantac 15mg/ml 300 mg PO BID 01/06/16 11/23/16 Unknown History Oral Liq] Abacavir/Dolutegravir/Lamivudi 1 each PO DAILY 05/03/16 11/23/16 Unknown History [Triumeq 600-50-300 mg Tablet] Atorvastatin Calcium [Lipitor] 20 mg PO DAILY 05/03/16 11/23/16 Unknown History DULoxetine [Cymbalta] 30 mg PO BID 05/03/16 11/23/16 Unknown History Abacavir/Dolutegravir/Lamivudi 1 tab PO DAILY 06/09/16 11/23/16 Unknown History [Triumeq 600-50-300 mg Tablet] Mirtazapine 15 mg PO DAILY 06/09/16 11/23/16 Unknown History Multivitamin No.44/Vit D3/K 1 tab PO DAILY 06/09/16 11/23/16 Unknown History [Multivitamins Softgels] Percocet 7.5/325 mg 1 tab PO QID 06/09/16 11/23/16 Unknown History Promethazine [Phenergan SUPPOS] 25 mg AZ Q6HR PRN #10 supp.rect 06/10/16 11/23/16 Unknown Rx Morphine ER 15 mg PO BID 11/23/16 11/23/16 1 Day Ago History ~11/22/16 15 mg ALBUTEROL Inhaler (OR & NICU) 2 puff IH QID PRN #1 inhalation 11/29/16 Unknown Rx [ProAir HFA Inhaler] Azithromycin [Zithromax TAB] 500 mg PO QDAY #5 tablet 11/29/16 Unknown Rx Furosemide [Lasix TAB] 20 mg PO Q48HR #15 tablet 11/29/16 Unknown Rx Montelukast [Singulair] 10 mg PO QPM #30 tablet 11/29/16 Unknown Rx Prednisone [predniSONE 10 mg 10 mg PO .TAPER #1 tab.ds.pk 11/29/16 Unknown Rx (6-Day Pack, 21 Tabs)] Metoclopramide [Reglan] 10 mg PO Q6H PRN #30 tablet 10/02/19 Unknown Rx ED Review of Systems ROS: Stated complaint: VOMITING, CHILLS, FEVER, & DIARRHEA Other details as noted in HPI Constitutional: fever Eyes: denies: eye pain ENT: denies: throat pain Respiratory: no symptoms reported Cardiovascular: denies: chest pain Endocrine: no symptoms reported Gastrointestinal: nausea, vomiting, diarrhea. denies: abdominal pain Genitourinary: denies: dysuria, hematuria Musculoskeletal: denies: back pain Neurological: denies: headache Physical Exam - Physical Exam Vital Signs: Vital Signs 10/01/19 20:19 Temperature 99.1 F Pulse Rate 82 Respiratory 16 Rate Blood Pressure 122/86 O2 Sat by Pulse 97 Oximetry Physical Exam: GENERAL: The patient is well-developed well-nourished female lying on stretcher not appearing to be in acute distress. [] HEENT: Normocephalic. Atraumatic. Extraocular motions are intact. Patient has moist mucous membranes. NECK: Supple. Trachea midline CHEST/LUNGS: Clear to auscultation. There is no respiratory distress noted. HEART/CARDIOVASCULAR: Regular. There is no tachycardia. There is no gallop rub or murmur. ABDOMEN: Abdomen is soft, with mild suprapubic discomfort to palpation. Otherwise nontender. There is no rebound or guarding. Patient has normal bowel sounds. There is no abdominal distention. SKIN: There is no rash. There is no edema. There is no diaphoresis. NEURO: The patient is awake, alert, and oriented. The patient is cooperative. The patient has normal speech MUSCULOSKELETAL: There is no evidence of acute injury. ED Course Vital Signs 10/01/19 20:19 Temperature 99.1 F Pulse Rate 82 Respiratory 16 Rate Blood Pressure 122/86 O2 Sat by Pulse 97 Oximetry - Reevaluation(s) Reevaluation #1: 10/02/19 01:09 Patient tolerating po ED Medical Decision Making - Lab Data Result diagrams: 10/01/19 22:24 10/01/19 22:24 - Radiology Data Radiology results: report reviewed (two-view abdominal x-ray), image reviewed (two-view abdominal x-ray) interpreted by me: Two-view abdominal [id number] pattern. Nonspecific bowel gas [facility] [address] [place] [address] XRay Report Signed Patient: AWAIS TALBOT MR#: [id number] : 1970 Acct:[id number] Age/Sex: 49 / F ADM Date: 10/01/19 Loc: ED Attending Dr: Ordering Physician: BARBRA ROSAS MD Date of Service: 10/01/19 Procedure(s): XR abdomen 2V Accession Number(s): [id number] cc: BARRBA ROSAS MD Fluoro Time In Minutes: EXAMINATION: Abdominal radiograph, 2 views, 10/01/2019 CLINICAL INFORMATION: Abdominal pain COMPARISON: No relevant prior studies are available for comparison FINDINGS: The bowel gas pattern is nonobstructive. Surgical clips overlie the right upper quadrant and may be from previous cholecystectomy. Evaluation of bony structures demonstrates no evidence of acute bony abnormality. There are faint bibasilar pulmonary opacities. IMPRESSION: 1. No radiographic evidence of acute intra-abdominal process. Signer Name: Licha Gibbons MD Signed: 10/02/2019 12:20 AM Workstation Name: [id number] Transcribed By: EB Dictated By: Licha Gibbons MD Electronically Authenticated By: Licha Gibbons MD Signed Date/Time: 10/02/1919 DD/ TD/TT: - Differential Diagnosis gastroenteritis, partial small bowel obstruction, UTI, pyelonephritis Critical care attestation.: If time is entered above; I have spent that time in minutes in the direct care of this critically ill patient, excluding procedure time. ED Disposition Clinical Impression: Nausea & vomiting Disposition: DC-01 TO HOME OR SELFCARE Is pt being admited?: No Does the pt Need Aspirin: No Condition: Stable Instructions: Acute Nausea and Vomiting (ED) Additional Instructions: Return to the emergency department should you develop worsening symptoms, inability to tolerate food or liquids, high fever or any other concerns Prescriptions: Metoclopramide [Reglan] 10 mg PO Q6H PRN #30 tablet PRN Reason: Nausea Referrals: TYRON HSIEH MD [Staff Physician] - 3-5 Days (Dr. Hsieh is a retail store associate. Please follow-up with him for further evaluation) Time of Disposition: 01:11
[2019-10-01 23:52] LABS: Bilirubin,Urine NEG (Negative); Blood,Urine NEG (Negative); Color,Urine Straw (Yellow); Protein,Urine <15 mg/dL mg/dL (Negative); Urobilinogen,Urine < 2.0 mg/dL (<2.0)
--- NOTE | 2019-10-02 00:24 | XRay Report ---
EXAMINATION: Abdominal radiograph, 2 views, 10/01/2019 CLINICAL INFORMATION: Abdominal pain COMPARISON: No relevant prior studies are available for comparison FINDINGS: The bowel gas pattern is nonobstructive. Surgical clips overlie the right upper quadrant and may be f rom previous cholecystectomy. Evaluation of bony structures demonstrates no evidence of acute bony abnormality. There are faint bibasilar pulmonary opacities. IMPRESSION: 1. No radiographic evidence of acute intra-abdominal process. Signer Name: Licha Gibbons MD Signed: 10/02/2019 12:20 AM Workstation Name: [email or web address]
== END 2019-10-02 01:30 | disposition home or self-care (01) ==
LOC: ED 20:14
DX: R11.2 Nausea with vomiting, unspecified (principal); R50.9 Fever, unspecified; R19.7 Diarrhea, unspecified; K21.9 Gastro-esophageal reflux disease without esophagitis; J45.909 Unspecified asthma, uncomplicated
CPT/HCPCS: 36415; 74019; 80053; 81001; 85025; 96361; 96374; 96375; 99284; J1720; J2765; J7030